=== PATIENT | male | born 1940 | race Caucasian/White ===

== ENCOUNTER 2016-10-05 07:45 | Inpatient (IN) | payer MEDICARE, OTHER ==
[~2016-10-05] VITALS: Ht 182.9 cm; Wt 77.6 kg
[2016-10-05] VITALS (21 sets, daily range): BP systolic 62–127; BP diastolic 37–59; PULSE 59–89; RESP 12–33; TEMP 97.8–102.3; O2SAT 93–100
[~2016-10-05 07:45] MED LIST: ALLO100T PO; AMLO2.5T PO; ASCO500 PO; ASPI81TA82 PO; CARB200T16 PO; CLIN150 PO; CLON0.5T PO; D 10CAP PO; DOCU1CAP39 PO; FERR324T4 PO; GLUC1000 PO; GLUC10TA3 PO; Hydrocodone/Acetaminophen PO; LACT PO; LITH300 PO; METF500 PO; OXYB5TAB33 PO; PRAV40TA PO; PROS5TAB2 PO; SLO-500T2 PO; ZIPR1CAP27 PO
[2016-10-05] MEDS ORDERED: VANCOMYCIN INJ 1,000 MG in SODIUM CHLOR 0.9% 250 ML INJ 250 ML IV ONE (08:00)
[2016-10-05] MEDS ORDERED: CEFEPIME INJ 2,000 MG in SODIUM CHLORIDE 0.9% INJ 100 ML IV ONE (08:00)
[2016-10-05] MEDS ORDERED: VANCOMYCIN HCL 1000 MG VIAL ONE (08:06)
[2016-10-05] MEDS ORDERED: NOREPINEPHRINE 4 MG/4 ML AMP ONE ×2 (08:07→10:32)
[2016-10-05 08:09] LABS: BLOOD GAS CARBOXYHEMOGLOBIN 1.8 % (0-4); BLOOD GAS HCO3 25 mmol/L (22-26); BLOOD GAS METHEMOGLOBIN 1.8 % (0-2); BLOOD GAS O2 HGB SATURATION 90 % (90-100); BLOOD GAS OXYGEN CONTENT 14.5 Vol % (12.0-20.0); BLOOD GAS PCO2 51 mmHg (38-42); BLOOD GAS PO2 69 mmHG (61-120); BLOOD GAS TOTAL HGB 11.4 G/DL (12.0-16.0); TEMP CORR TO 98.6
[2016-10-05 08:10] LABS: CRITICAL VALUE YES; DRAW SITE LT RADIAL; FIO2 100 %; NUMBER OF ARTERIAL PUNCTURES 1; OXYGEN DEVICE VENTILATOR; STAT YES; ULNAR PULSE PRESENT; VENT SETTINGS PRVC/AC
[2016-10-05 08:44] LABS: AUTOMATED NEUTROPHIL # 12.1 TH/MM3 (1.8-7.7); BASOPHIL % 0.1 % (0.0-2.0); HEMATOCRIT 35.2 % (39.0-51.0); HEMO FLAGS DIFF FINAL; LYMPH % 2.4 % (9.0-44.0); LYMPHOCYTE # 0.3 TH/MM3 (1.0-4.8); MEAN CELL VOLUME 97.8 FL (80.0-100.0); MEAN CORPUSCULAR HEMOGLOBIN 30.8 PG (27.0-34.0); MEAN CORPUSCULAR HGB CONC 31.4 % (32.0-36.0); NEUT % 92.5 % (16.0-70.0); PLATELET COUNT 444 TH/MM3 (150-450); RED CELL DISTRIBUTION WIDTH 15.4 % (11.6-17.2); WHITE BLOOD COUNT 13.1 TH/MM3 (4.0-11.0)
[2016-10-05 08:53] LABS: PROTHROMBIN TIME - PATIENT 10.9 SEC (9.8-11.6)
[2016-10-05 08:54] LABS: APTT (PATIENT) 22.2 SEC (24.3-30.1)
--- NOTE | 2016-10-05 08:55 | PD ---
HPI Chief Complaint: Respiratory Distress Time Seen by Provider: 07:54 Travel History International Travel<30 days: No Contact w/Intl Traveler<30days: No Traveled to known affect area: No History of Present Illness HPI This is a 76-year-old male who presents to the emergency department [facility] poorly responsive having vomited with a low oxygen saturation. He evidently was seen normal earlier this morning. His baseline is he is somewhat confused. Patient had a GCS of 3 with EMS. He was intubated in the field due to poor airway protection and transferred to the emergency department. He was found to be hypotensive with a systolic of 60. He was given 600 cc of normal saline. He was found to be febrile to 101. PFSH Past Medical History Anemia: Yes Arthritis: Yes Asthma: No Blood Disorders: No Bipolar Disorder: Yes Anxiety: Yes Depression: Yes Heart Rhythm Problems: No Cancer: No Cardiovascular Problems: Yes (BYPASS/PACEMAKER) High Cholesterol: Yes Chest Pain: No Congestive Heart Failure: No COPD: Yes Cerebrovascular Accident: No Diabetes: Yes Diverticulitis: Yes Endocrine: Yes Gastrointestinal Disorders: Yes (H/X OF HEMMORRHOIDS) GERD: Yes (BARRETS ESOPHAGUS) Genitourinary: Yes (CHRONIC KIDNEY DISEASE, BPH) Headaches: Yes Hiatal Hernia: No Hypertension: No Immune Disorder: No Implanted Vascular Access Dvce: No Kidney Stones: No Musculoskeletal: Yes (DJD) Neurologic: Yes Parkinson's Disease: Yes (Neuroleptic) Psychiatric: Yes (SCHIZOPHRENIA, BIPOLAR, ) Reproductive: No Respiratory: Yes (COPD) Migraines: No Renal Failure: No Schizophrenia: Yes (SCHIZO-AFFECTIVE) Seizures: No Sleep Apnea: No Thyroid Disease: No Ulcer: No ?: Not Past Surgical History Abdominal Surgery: No Cardiac Surgery: No Ear Surgery: No Endocrine Surgery: No Eye Surgery: No Genitourinary Surgery: No Gynecologic Surgery: No Neurologic Surgery: Yes (ELECTRIC SHOCK THERAPY ) Oral Surgery: No Pacemaker: Yes (2010) Thoracic Surgery: No Other Surgery: Yes Social History Alcohol Use: No Tobacco Use: No (nicotine losenges) Substance Use: No Allergies-Medications (Allergen,Severity, Reaction): Coded Allergies: Elavil (Verified Allergy, Severe, HEART IRREGULAR, 12/06/12) Haldol (Verified Allergy, Severe, HEART, 12/06/12) Mellaril (Verified Allergy, Severe, 12/06/12) Penicillin (Verified Allergy, Severe, Seizures, 12/06/12) Simvastatin (Verified Allergy, Severe, 12/06/12) Terazosin (Verified Allergy, Severe, 12/06/12) Thorazine (Verified Allergy, Severe, HEART IRREGULAR, 12/06/12) Reported Meds & Prescriptions Reported Meds & Active Scripts Active Reported Milk of Magnesia Liq (Magnesium Hydroxide) 400 Mg/5 Ml Susp 30 Ml G-TUBE DAILY PRN Trazodone (Trazodone HCl) 100 Mg Tab 100 Mg G-TUBE HS PRN Ativan (Lorazepam) 1 Mg Tab 1 Mg G-TUBE TID PRN Nepro with Carb Steady (Nutritional Supplements) 1 Liq Liq G-TUBE BID 60ML/HR X 20HRS A DAY Geodon (Ziprasidone) 80 Mg Cap 80 Mg G-TUBE BID Poly-Iron 150 (Polysaccharide Iron Complex) 150 Mg Cap 150 Mg G-TUBE BID Ditropan (Oxybutynin Chloride) 5 Mg Tab 5 Mg G-TUBE Q12HR Docusate Sodium Liq (Docusate Sodium) 50 Mg/5 Ml Liq 200 Mg G-TUBE BID Carbamazepine 100 Mg Chew 100 Mg G-TUBE BID Famotidine 20 Mg Tab 20 Mg G-TUBE DAILY Vitamin D3 (Cholecalciferol) 1,000 Unit Tab 1,000 Units G-TUBE DAILY Tamsulosin (Tamsulosin HCl) 0.4 Mg Cap 0.4 Mg G-TUBE DAILY Multi-Delyn/Iron (Pediatric Multiple Vitamins W/) 1 Liq Liq 5 Ml G-TUBE DAILY Ceiba Carbonate 300 Mg Tab 300 Mg G-TUBE DAILY Glipizide 10 Mg Tab 10 Mg G-TUBE DAILY Take 30 minutes before a meal Finasteride 5 Mg Tab 5 Mg G-TUBE DAILY Do not crush. Aspirin 81 Mg Chew 81 Mg G-TUBE DAILY Vitamin C (Ascorbic Acid) 500 Mg Tab 500 Mg G-TUBE DAILY Amlodipine (Amlodipine Besylate) 2.5 Mg Tab 2.5 Mg G-TUBE DAILY Allopurinol 100 Mg Tab 100 Mg G-TUBE DAILY Pravastatin 10 Mg Tab 10 Mg G-TUBE HS Klonopin (Clonazepam) 0.5 Mg Tab 0.5 Mg G-TUBE HS Physical Exam Narrative GENERAL: Frail elderly male SKIN: Warm and dry. HEAD: Atraumatic. Normocephalic. EYES: Pupils equal and round. No injection or drainage. ENT: Dry mucous membranes NECK: Trachea midline. CARDIOVASCULAR: Regular rate and rhythm. No murmur appreciated. RESPIRATORY: Clear to auscultation. Breath sounds equal bilaterally. GASTROINTESTINAL: Abdomen soft, non-tender, nondistended. MUSCULOSKELETAL: No obvious deformities. NEUROLOGICAL: GCS of 3, corneal reflexes intact, normal doll's eyes reflex, pupils are equal with no sign of brain stem infarct Data Data Last Documented VS Vital Signs Date Time Temp Pulse Resp B/P Pulse Ox O2 Delivery O2 Flow Rate FiO2 10/05/16 09:10 97 10/05/16 09:08 102.3 71 16 127/57 Ventilator 10/05/16 07:45 100 Orders Complete Blood Count With Diff (10/05/16 07:54) Comprehensive Metabolic Panel (10/05/16 07:54) Prothrombin Time / Inr (Pt) (10/05/16 07:54) Act Partial Throm Time (Ptt) (10/05/16 07:54) Lactic Acid Sepsis Protocol (10/05/16 07:54) Troponin I (10/05/16 07:54) Urinalysis - C+S If Indicated (10/05/16 07:54) Influenzae A/B Antigen (10/05/16 07:54) Blood Culture (10/05/16 07:54) Sputum Culture And Gram Stain (10/05/16 07:54) Chest, Single Ap (10/05/16 07:54) Arterial Blood Gas (Abg) (10/05/16 07:54) Blood Glucose (10/05/16 07:54) Ecg Monitoring (10/05/16 07:54) Iv Access Insert/Monitor (10/05/16 07:54) Oximetry (10/05/16 07:54) Oxygen Administration (10/05/16 07:54) Vancomycin Inj (Vancomycin Inj) (10/05/16 08:00) Cefepime Inj (Maxipime Inj) (10/05/16 08:00) Norepinephrine Inj (Levophed Inj) (10/05/16 08:07) Vancomycin Inj (Vancomycin Inj) (10/05/16 08:06) Ct Brain W/O Iv Contrast(Rout) (10/05/16 ) Sodium Chlor 0.9% 1000 Ml Inj (Ns 1000 M (10/05/16 09:00) Fentanyl Inj (Fentanyl Inj) (10/05/16 09:00) Acetaminophen (Tylenol) (10/05/16 09:00) Acetaminophen Supp (Tylenol Supp) (10/05/16 09:00) Midazolam Inj (Versed Inj) (10/05/16 09:15) Sodium Chlor 0.9% 1000 Ml Inj (Ns 1000 M (10/05/16 09:15) Sodium Chlor 0.9% 1000 Ml Inj (Ns 1000 M (10/05/16 09:15) Midazolam Inj (Versed Inj) (10/05/16 09:04) Fentanyl Inj (Fentanyl Inj) (10/05/16 09:05) Urine Culture (10/05/16 09:02) Admit Order (Ed Use Only) (10/05/16 09:42) Labs Laboratory Tests Test 10/05/16 10/05/16 10/05/16 10/05/16 08:00 08:11 08:25 09:02 Blood Gas Puncture Site LT RADIAL Blood Gas Patient Temperature 98.6 Blood Gas HCO3 25 mmol/L Blood Gas Base Excess -1.0 mmol/L Blood Gas Oxygen Saturation 90 % Arterial Blood pH 7.30 Arterial Blood Partial 51 mmHg Pressure CO2 Arterial Blood Partial 69 mmHG Pressure O2 Arterial Blood Oxygen Content 14.5 Vol % Arterial Blood 1.8 % Carboxyhemoglobin Arterial Blood Methemoglobin 1.8 % Blood Gas Hemoglobin 11.4 G/DL Oxygen Delivery Device VENTILATOR Blood Gas Ventilator Setting PRVC/AC Blood Gas Inspired Oxygen 100 % White Blood Count 13.1 TH/MM3 Red Blood Count 3.60 MIL/MM3 Hemoglobin 11.1 GM/DL Hematocrit 35.2 % Mean Corpuscular Volume 97.8 FL Mean Corpuscular Hemoglobin 30.8 PG Mean Corpuscular Hemoglobin 31.4 % Concent Red Cell Distribution Width 15.4 % Platelet Count 444 TH/MM3 Mean Platelet Volume 9.2 FL Neutrophils (%) (Auto) 92.5 % Lymphocytes (%) (Auto) 2.4 % Monocytes (%) (Auto) 5.0 % Eosinophils (%) (Auto) 0.0 % Basophils (%) (Auto) 0.1 % Neutrophils # (Auto) 12.1 TH/MM3 Lymphocytes # (Auto) 0.3 TH/MM3 Monocytes # (Auto) 0.7 TH/MM3 Eosinophils # (Auto) 0.0 TH/MM3 Basophils # (Auto) 0.0 TH/MM3 CBC Comment DIFF FINAL Differential Comment Prothrombin Time 10.9 SEC Prothromb Time International 1.0 RATIO Ratio Activated Partial 22.2 SEC Thromboplast Time Sodium Level 149 MEQ/L Potassium Level 5.5 MEQ/L Chloride Level 112 MEQ/L Carbon Dioxide Level 25.4 MEQ/L Anion Gap 12 MEQ/L Blood Urea Nitrogen 55 MG/DL Creatinine 2.46 MG/DL Estimat Glomerular Filtration 26 ML/MIN Rate Random Glucose 227 MG/DL Calcium Level 10.0 MG/DL Total Bilirubin 0.3 MG/DL Aspartate Amino Transf 32 U/L (AST/SGOT) Alanine Aminotransferase 18 U/L (ALT/SGPT) Alkaline Phosphatase 84 U/L Troponin I 0.03 NG/ML Total Protein 8.0 GM/DL Albumin 2.1 GM/DL Lactic Acid Level 4.3 mmol/L Urine Color YELLOW Urine Turbidity HAZY Urine pH 5.5 Urine Specific [place] 1.013 Urine Protein 30 mg/dL Urine Glucose (UA) NEG mg/dL Urine Ketones NEG mg/dL Urine Occult Blood NEG Urine Nitrite NEG Urine Bilirubin NEG Urine Urobilinogen LESS THAN 2.0 MG/DL Urine Leukocyte Esterase SMALL Urine RBC 1 /hpf Urine WBC 2 /hpf Urine Squamous Epithelial 1 /hpf Cells Urine Transitional Epithelial <1 /hpf Cells Urine Amorphous Sediment MOD Urine Bacteria OCC /hpf Urine Mucus FEW /lpf Microscopic Urinalysis Comment CATH-CULTURE IND MDM Medical Decision Making Medical Screen Exam Complete: Yes Emergency Medical Condition: Yes Interpretation(s) Fever, hypotension Leukocytosis with left shift Anemia Hypernatremia, mild hyperkalemia Renal insufficiency with an elevated BUN Lactic acid is 4.3 Last [address] 10/05/16 0000 Signed Impressions: Service Date/Time: Wednesday, October 05, 2016 09:24 - CONCLUSION: Negative for an acute process.. Eric Mcclellan MD FACR Differential Diagnosis Pneumonia, urinary tract infection, sepsis, intracranial hemorrhage, myocardial infarction Narrative Course This is a 76-year-old male who presents to the emergency department with hypoxic respiratory failure and altered mental status. Patient had been intubated in the field by EMS. On arrival an IV was established and he was placed on a monitor. On arrival he had a systolic blood pressure in the 60s despite 2 L of IV fluid he did not have improvement. A right internal jugular central line was placed and the patient was started on Levophed. He was given broad-spectrum antibiotics and continued IV hydration. I suspect his source is pneumonia as his chest x-ray appears to have early infiltrate on the right side , possibly consistent with aspiration. His initial lactic acid was over 4 but on repeat it was 1.7. Patient will be admitted to the intensive care unit for further monitoring. Critical Care Narrative Aggregate critical care time was 70 minutes. Time to perform other separately billable procedures was not included in the critical care time. My time did not include minutes spent treating any other patients simultaneously or on activities that did not directly contribute to the patient's treatment. The services I provided to this patient were to treat and/or prevent clinically significant deterioration that could result in: disability, I provided critical care services requiring my management, as noted below: Chart data review, documentation time, medication orders and management, vital sign assessments/reviewing monitor data, ordering and reviewing lab tests, ordering and interpreting/reviewing x-rays and diagnostic studies, care of the patient and discussion of the patient with the admitting physicians. Procedures Procedure Narrative CENTRAL VENOUS LINE: The site was prepped with Chloraprep and sterilely draped. It was infiltrated with 1% lidocaine plain. The deep vein was cannulated using normal Seldinger technique. A triple lumen central line was placed in the right internal jugular site and secured. The site was sterilely dressed. The patient tolerated the procedure well. Diagnosis Primary Impression: Septic shock Admitting Information Admitting Physician Requests: Admit Radha Claros MD Oct 05, 2016 08:54
[2016-10-05] MEDS ORDERED: SODIUM CHLOR 0.9% 1000 ML INJ 1,000 ML IV SCH ×3 (09:00→09:15)
[2016-10-05] MEDS ORDERED: ACETAMINOPHEN 500 MG CPLT PO ONE (09:00)
[2016-10-05] MEDS ORDERED: ACETAMINOPHEN 650 MG SUPP RECTAL ONE (09:00)
[2016-10-05] MEDS ORDERED: MIDAZOLAM HCL 5 MG/ML VIAL (1 ML) ONE (09:04)
[2016-10-05] MEDS ORDERED: MIDAZOLAM HCL 2 MG/2 ML VIAL IV PUSH ONE (09:15)
[2016-10-05 09:16] LABS: ALKALINE PHOSPHATASE 84 U/L (45-117); ALT (GPT) 18 U/L (12-78); ANION GAP 12 MEQ/L (5-15); AST (GOT) 32 U/L (15-37); BICARBONATE 25.4 MEQ/L (21.0-32.0); BLOOD UREA NITROGEN 55 MG/DL (7-18); CHLORIDE 112 MEQ/L (98-107); GLOMERULAR FILTRATION RATE 26 ML/MIN (>89); SODIUM (NA) 149 MEQ/L (136-145); TOTAL BILIRUBIN ADULT 0.3 MG/DL (0.2-1.0)
[2016-10-05 09:17] LABS: POTASSIUM 5.5 MEQ/L (3.5-5.1)
--- NOTE | 2016-10-05 09:22 | RADRPT ---
EXAM DATE/TIME: 10/05/2016 08:41 [facility] COMPARISON: CHEST SINGLE AP, December 06, 2012, 12:17. INDICATIONS : Post intubation and central line placement MEDICAL HISTORY : Unobtainable SURGICAL HISTORY : Unobtainable ENCOUNTER: Initial ACUITY: 1 day PAIN SCORE: Non-responsive. LOCATION: Bilateral chest FINDINGS: Support apparatus is in good position. Pacemaker is implanted in the left chest. The lungs are sharon r. Heart and pulmonary vascularity are normal. CONCLUSION: ET tube in good position. Eric Mcclellan MD FACR on October 05, 2016 at 9:18 Board Certified Radiologist. This report was verified electronically.
[2016-10-05 09:31] LABS: BACTERIA, URINE OCC /hpf; BLOOD, URINE NEG (NEG); COMMENT (UR) CATH-CULTURE IND; CULTURE IF INDICATED CATH CULTURE IND; GLUCOSE,URINE NEG (NEG); KETONE, URINE NEG (NEG); MUCUS URINE FEW /lpf (OCC); NITRITE,URINE NEG (NEG); PH, URINE 5.5 (5.0-8.5); SQUAMOUS EPITHELIAL CELL URINE 1 /hpf (0-5); TRANSITIONAL EPI CELLS, URINE <1 /hpf; URINE COLOR YELLOW (YELLW/STRAW)
--- NOTE | 2016-10-05 09:37 | RADRPT ---
EXAM DATE/TIME: 10/05/2016 09:24 [facility] COMPARISON: CT BRAIN W/O CONTRAST, December 06, 2012, 13:19. INDICATIONS : Altered mental status. Possible aspiration. RADIATION DOSE: 46.76 CTDIvol (mGy) MEDICAL HISTORY : Chronic obstructive pulmonary disease. SURGICAL HISTORY : Pacemaker. ENCOUNTER: Initial ACUITY: 1 day PAIN SCALE: Non-responsive LOCATION: cranial TECHNIQUE: Multiple contiguous axial images were obtained of the head. Using automated exposure control and adj ustment of the mA and/or kV according to patient size, radiation dose was kept as low as reasonably a chievable to obtain optimal diagnostic quality images. FINDINGS: CEREBRUM: The ventricles are normal for age. No evidence of midline shift, mass lesion, hemorrhage or acute in farction. No extra-axial fluid collections are seen. POSTERIOR FOSSA: The cerebellum and brainstem are intact. The 4th ventricle is midline. The cerebellopontine angle i s unremarkable. EXTRACRANIAL: The visualized portion of the orbits is intact. SKULL: The calvaria is intact. No evidence of skull fracture. CONCLUSION: Negative for an acute process.. Eric Mcclellan MD FACR on October 05, 2016 at 9:35 Board Certified Radiologist. This report was verified electronically.
[2016-10-05 10:28] LABS: LACTIC ACID GHOST NOT REPORTABLE
[2016-10-05] MEDS ORDERED: FAMO20TA2 G-TUBE (10:29)
[2016-10-05] MEDS ORDERED: AMLO2.5T G-TUBE (10:29)
[2016-10-05] MEDS ORDERED: NU-IRON G-TUBE (10:29)
[2016-10-05] MEDS ORDERED: CARB100C G-TUBE (10:29)
[2016-10-05] MEDS ORDERED: TRAZ100T4 G-TUBE (10:29)
[2016-10-05] MEDS ORDERED: GEOD80CA G-TUBE (10:29)
[2016-10-05] MEDS ORDERED: DOCU100S G-TUBE (10:29)
[2016-10-05] MEDS ORDERED: GLIP10TA6 G-TUBE (10:29)
[2016-10-05] MEDS ORDERED: ALLO100T G-TUBE (10:29)
[2016-10-05] MEDS ORDERED: TAMS0.4C4 G-TUBE (10:29)
[2016-10-05] MEDS ORDERED: VITA100018 G-TUBE (10:29)
[2016-10-05] MEDS ORDERED: NEPRLIQ3 G-TUBE (10:29)
[2016-10-05] MEDS ORDERED: CLON.5 G-TUBE (10:29)
[2016-10-05] MEDS ORDERED: LORA-474 G-TUBE (10:29)
[2016-10-05] MEDS ORDERED: MILKSUS G-TUBE (10:29)
[2016-10-05] MEDS ORDERED: FINA5TAB2 G-TUBE (10:29)
[2016-10-05] MEDS ORDERED: LITH300T3 G-TUBE (10:29)
[2016-10-05] MEDS ORDERED: OXYB5TAB10 G-TUBE (10:29)
[2016-10-05] MEDS ORDERED: PRAV10TA G-TUBE (10:29)
[2016-10-05] MEDS ORDERED: MULTLIQ5 G-TUBE (10:29)
[2016-10-05] MEDS ORDERED: ASPI81CH G-TUBE (10:29)
[2016-10-05] MEDS ORDERED: VITA500T G-TUBE (10:29)
[2016-10-05] MEDS ORDERED: TERBUTALINE INJ 1 MG/ML AMP SQ PRN (10:30)
[2016-10-05] MEDS ORDERED: SODIUM CHLORIDE 0.9% FLUSH 5 ML FLUSH IVF PRN (10:30)
[2016-10-05] MEDS: NOREPINEPHRINE-DEXTROSE DRIP 250 ML IV SCH ×4 (11:04→21:14)
[2016-10-05] MEDS ORDERED: fentaNYL DRIP 250 ML IV SCH (12:15)
[2016-10-05] MEDS ORDERED: fentaNYL DRIP 250 ML ONE (12:20)
--- NOTE | 2016-10-05 14:34 | EKG ---
Date Performed: 10/05/2016 Time Performed: 08:39:36 PTAGE: 76 years EKG: Sinus rhythm WITH OCCASIONAL SUPRAVENTRICULAR PREMATURE COMPLEXES INAPPROPRIATE SENSING BY PACEMAKER LOW QRS VOLT AGE IN PRECORDIAL LEADS PROLONGED QT INTERVAL Nonspecific ST and T wave abnormalities ABNORMAL ECG IN TERPRETATION BASED ON A DEFAULT AGE OF 40 YEARS PREVIOUS TRACING : 12/06/2012 12.52 Compared to the previous tracing, previously sinus rh ythm, now sinus rhythm with inappropriate sensing by pacemaker and nonspecific ST/T wave changes DOCTOR: Howie Ji Interpretating Date/Time 10/05/2016 14:33:09
[2016-10-05] MEDS ORDERED: RESP: ALBUTEROL 2.5 MG/IPRATROPIUM 0.5 MG NEB (PRN) INH (15:45)
[2016-10-05] MEDS ORDERED: ONDANSETRON HCL 4 MG/2 ML VIAL IV PRN (15:45)
[2016-10-05] MEDS ORDERED: Vancomycin Consult Pharmacy 1 EA OTHER SCH (15:45)
[2016-10-05] MEDS ORDERED: PROPOFOL 1000 MG/100 ML INJ 100 ML IV SCH (15:45)
[2016-10-05] MEDS ORDERED: CHLORHEXIDINE GLUCONATE 2 % 1 PACK (2 CLOTHS) TOP PRN (15:45)
[2016-10-05] MEDS ORDERED: MISCELLANEOUS NURSING INFORMATION XX SCH (15:45)
[2016-10-05] MEDS ORDERED: SODIUM CHLORIDE 0.9% FLUSH 5 ML FLUSH IV FLUSH PRN (15:45)
[2016-10-05] MEDS ORDERED: DEXTROSE 50% IN WATER 50 ML VIAL(D50) IV PUSH PRN (15:45)
[2016-10-05 17:08] LABS: BICARBONATE 20.5 MEQ/L (21.0-32.0); POTASSIUM 5.3 MEQ/L (3.5-5.1)
[2016-10-05] MEDS: INSULIN NovoLIN REGULAR SUPPLEMENTAL SCALE SQ SCH (17:58)
[2016-10-05] MEDS: RESP: ALBUTEROL 2.5 MG/IPRATROPIUM 0.5 MG NEB (SCH) INH (19:17)
[2016-10-05] MEDS ORDERED: CHLORHEXIDINE GLUCONATE 2 % 1 PACK (2 CLOTHS)(extra cloths) TOP PRN (19:30)
[2016-10-05] MEDS: SODIUM CHLOR 0.9% 1000 ML INJ 1,000 ML IV SCH (20:30)
[2016-10-05] MEDS: HEPARIN SODIUM - SQ 10,000 UNITS/ML VIAL SQ SCH (21:14)
[2016-10-05] MEDS: PRAVASTATIN SOD 10 MG TAB G-TUBE SCH (21:15)
[2016-10-05] MEDS: SODIUM CHLORIDE 0.9% FLUSH 5 ML FLUSH IV FLUSH SCH (21:15)
[2016-10-05] MEDS: DOCUSATE SODIUM 50 MG/SENNA 8.6 MG TAB PO SCH (21:15)
[2016-10-05] MEDS: CHLORHEXIDINE 0.12% (ORAL KIT) 15 ML CUP MT SCH (21:16)
--- NOTE | 2016-10-05 22:55 | HHI.HP ---
[facility] Service Critical Care Medicine Primary Care Physician Orlando Garcia, DO Admission Diagnosis septic shock Diagnosis: Chief Complaint: altered mental status Travel History International Travel<30 Days: No Contact w/Intl Traveler <30 Da: No Traveled to Known Affected Are: No History of Present Illness This is a 76-year-old male who [facility] after he had an acute mental status change and was noticed to have vomited around his tracheostomy site and hypoxia. Per report, he was seen normal earlier in the morning. He is apparently somewhat confused at baseline. He has a long psychiatric history. For EMS, the patient had a GCS of 3. He was intubated in the field. In the emergency room he was hypotensive with systolics in the 60s. He was given IV fluid boluses. He was febrile to 101. He was started on empiric antibiotics. Central line was placed. He was started on norepinephrine. Critical care medicine is consult to evaluate and manage septic shock. Review of Systems ROS Limitations: Clinical Condition, Intubated, Altered Mental Status Past Family Social History Allergies: Coded Allergies: Elavil (Verified Allergy, Severe, HEART IRREGULAR, 12/06/12) Haldol (Verified Allergy, Severe, HEART, 12/06/12) Mellaril (Verified Allergy, Severe, 12/06/12) Penicillin (Verified Allergy, Severe, Seizures, 12/06/12) Simvastatin (Verified Allergy, Severe, 12/06/12) Terazosin (Verified Allergy, Severe, 12/06/12) Thorazine (Verified Allergy, Severe, HEART IRREGULAR, 12/06/12) Past Medical History Anemia Arthritis Bipolar disorder Anxiety Depression Pacemaker Hyperlipidemia Diabetes Diverticulitis Hemorrhoids Barrios's esophagus Chronic kidney disease BPH COPD Headaches Degenerative disc disease Parkinson's disease Schizophrenia Bipolar Schizoaffective disorder Past Surgical History ECT Pacemaker in 2010 Reported Medications Milk of Magnesia Liq (Magnesium Hydroxide) 400 Mg/5 Ml Susp 30 Ml G-TUBE DAILY PRN Trazodone (Trazodone HCl) 100 Mg Tab 100 Mg G-TUBE HS PRN Ativan (Lorazepam) 1 Mg Tab 1 Mg G-TUBE TID PRN Nepro with Carb Steady (Nutritional Supplements) 1 Liq Liq G-TUBE BID 60ML/HR X 20HRS A DAY Geodon (Ziprasidone) 80 Mg Cap 80 Mg G-TUBE BID Poly-Iron 150 (Polysaccharide Iron Complex) 150 Mg Cap 150 Mg G-TUBE BID Ditropan (Oxybutynin Chloride) 5 Mg Tab 5 Mg G-TUBE Q12HR Docusate Sodium Liq (Docusate Sodium) 50 Mg/5 Ml Liq 200 Mg G-TUBE BID Carbamazepine 100 Mg Chew 100 Mg G-TUBE BID Famotidine 20 Mg Tab 20 Mg G-TUBE DAILY Vitamin D3 (Cholecalciferol) 1,000 Unit Tab 1,000 Units G-TUBE DAILY Tamsulosin (Tamsulosin HCl) 0.4 Mg Cap 0.4 Mg G-TUBE DAILY Multi-Delyn/Iron (Pediatric Multiple Vitamins W/) 1 Liq Liq 5 Ml G-TUBE DAILY Haskell Carbonate 300 Mg Tab 300 Mg G-TUBE DAILY Glipizide 10 Mg Tab 10 Mg G-TUBE DAILY Take 30 minutes before a meal Finasteride 5 Mg Tab 5 Mg G-TUBE DAILY Do not crush. Aspirin 81 Mg Chew 81 Mg G-TUBE DAILY Vitamin C (Ascorbic Acid) 500 Mg Tab 500 Mg G-TUBE DAILY Amlodipine (Amlodipine Besylate) 2.5 Mg Tab 2.5 Mg G-TUBE DAILY Allopurinol 100 Mg Tab 100 Mg G-TUBE DAILY Pravastatin 10 Mg Tab 10 Mg G-TUBE HS Klonopin (Clonazepam) 0.5 Mg Tab 0.5 Mg G-TUBE HS Active Ordered Medications See MAR Family History reviewed and found to be noncontributory to his acute illness Social History per chart review: denied etoh, tobacco (nicotine losenges), DOA. Physical Exam Vital Signs Vital Signs Date Time Temp Pulse Resp B/P Pulse Ox O2 Delivery O2 Flow Rate FiO2 10/05/16 20:00 59 102/59 10/05/16 19:18 96 40 10/05/16 18:00 59 10/05/16 17:13 95 40 10/05/16 16:00 97.8 59 17 101/58 98 10/05/16 16:00 59 10/05/16 16:00 59 101/58 10/05/16 14:00 59 10/05/16 13:29 60 10/05/16 12:45 97 10/05/16 12:22 60 18 109/57 98 Ventilator 10/05/16 11:56 61 16 100/55 100 Ventilator 10/05/16 11:10 100 100 10/05/16 11:06 61 18 91/53 99 Room Air 10/05/16 10:09 68 18 104/52 100 Ventilator 10/05/16 09:57 66 16 99/58 100 Ventilator 10/05/16 09:44 102.3 73 16 92/51 100 Ventilator 10/05/16 09:10 97 10/05/16 09:08 102.3 71 16 127/57 97 Ventilator 10/05/16 08:26 97 Ventilator 10/05/16 08:26 80 12 98 10/05/16 08:22 72 12 69/37 100 10/05/16 08:15 102.3 68 16 62/41 98 Ventilator 10/05/16 07:45 95 100 Physical Exam GENERAL: Elderly male, lying in bed, intubated, sedated and critically ill. HEENT: Normocephalic. Atraumatic. Pupils equally round and reactive. NECK: Trachea is midline. There is no JVD. CHEST: Equal chest rise. Coarse breath sounds bilaterally. Intubated. CARDIOVASCULAR: Bradycardic rate, regular rhythm. There are pacer spikes which do not correlate with QRS. ABDOMEN: Soft, nontender, nondistended. No guarding. There is a PEG tube exit subxiphoid. The site is clean and dry. MUSCULOSKELETAL: Moves all extremities. Distal pulses 2+. No peripheral edema. NEUROLOGICAL: RASS -4. moves all extremities, non-purposeful. nonfocal. Laboratory Laboratory Tests Test 10/05/16 10/05/16 10/05/16 10/05/16 08:00 08:11 08:25 09:02 Blood Gas Puncture Site LT RADIAL Blood Gas Patient Temperature 98.6 Blood Gas HCO3 25 Blood Gas Base Excess -1.0 Blood Gas Oxygen Saturation 90 Arterial Blood pH 7.30 Arterial Blood Partial 51 Pressure CO2 Arterial Blood Partial 69 Pressure O2 Arterial Blood Oxygen Content 14.5 Arterial Blood 1.8 Carboxyhemoglobin Arterial Blood Methemoglobin 1.8 Blood Gas Hemoglobin 11.4 Oxygen Delivery Device VENTILATOR Blood Gas Ventilator Setting PRVC/AC Blood Gas Inspired Oxygen 100 White Blood Count 13.1 Red Blood Count 3.60 Hemoglobin 11.1 Hematocrit 35.2 Mean Corpuscular Volume 97.8 Mean Corpuscular Hemoglobin 30.8 Mean Corpuscular Hemoglobin 31.4 Concent Red Cell Distribution Width 15.4 Platelet Count 444 Mean Platelet Volume 9.2 Neutrophils (%) (Auto) 92.5 Lymphocytes (%) (Auto) 2.4 Monocytes (%) (Auto) 5.0 Eosinophils (%) (Auto) 0.0 Basophils (%) (Auto) 0.1 Neutrophils # (Auto) 12.1 Lymphocytes # (Auto) 0.3 Monocytes # (Auto) 0.7 Eosinophils # (Auto) 0.0 Basophils # (Auto) 0.0 CBC Comment DIFF FINAL Differential Comment Prothrombin Time 10.9 Prothromb Time International 1.0 Ratio Activated Partial 22.2 Thromboplast Time Sodium Level 149 Potassium Level 5.5 Chloride Level 112 Carbon Dioxide Level 25.4 Anion Gap 12 Blood Urea Nitrogen 55 Creatinine 2.46 Estimat Glomerular Filtration 26 Rate Random Glucose 227 Calcium Level 10.0 Total Bilirubin 0.3 Aspartate Amino Transf 32 (AST/SGOT) Alanine Aminotransferase 18 (ALT/SGPT) Alkaline Phosphatase 84 Troponin I 0.03 Total Protein 8.0 Albumin 2.1 Lactic Acid Level 4.3 Urine Color YELLOW Urine Turbidity HAZY Urine pH 5.5 Urine Specific Dorsey 1.013 Urine Protein 30 Urine Glucose (UA) NEG Urine Ketones NEG Urine Occult Blood NEG Urine Nitrite NEG Urine Bilirubin NEG Urine Urobilinogen LESS THAN 2.0 Urine Leukocyte Esterase SMALL Urine RBC 1 Urine WBC 2 Urine Squamous Epithelial 1 Cells Urine Transitional Epithelial <1 Cells Urine Amorphous Sediment MOD Urine Bacteria OCC Urine Mucus FEW Microscopic Urinalysis Comment CATH-CULTURE IND Test 10/05/16 10/05/16 10/05/16 10:49 14:30 16:24 Lactic Acid Level 1.7 Nasal Screen MRSA (PCR) POSITIVE Sodium Level 147 Potassium Level 5.3 Chloride Level 118 Carbon Dioxide Level 20.5 Anion Gap 9 Blood Urea Nitrogen 56 Creatinine 2.17 Estimat Glomerular Filtration 30 Rate Random Glucose 355 Calcium Level 8.9 Date/Time Procedure Status Source Growth 10/05/16 09:02 Urine Culture Received Urine Clean Catch Pending 10/05/16 09:02 Gram Stain - Final Resulted Sputum Expectorated Sputum 10/05/16 09:02 Sputum Culture Resulted Sputum Expectorated Sputum Pending 10/05/16 08:16 Aerobic Blood Culture Received Blood Peripheral Pending 10/05/16 08:16 Anaerobic Blood Culture Received Blood Peripheral Pending Result Diagram: 10/05/16 0811 10/05/16 1624 Assessment and Plan Assessment and Plan Assessment: This is a 76-year-old male with long psychiatric history, chronically critically ill with PEG tube placement who presents with what appears to be an aspiration-like event, septic shock, possible aspiration pneumonia. During his mental status is likely accommodation of his baseline psychiatric illness along with his septic shock. He is very critically ill. I' m very concerned given his age and multiple comorbidities, that he may not do well long-term. We will consult palliative care and have them assist with goals of care discussion. His prognosis is guarded. Plan by systems: Neurologic: Bipolar disorder Schizophrenia Metabolic encephalopathy Goal RASS 0 Propofol, fentanyl for goal RASS Daily sedation vacation Will likely need his antipsychotics restarted as he improves. For now we will hold him. Respiratory: Acute hypoxic respiratory failure Probable aspiration pneumonia Head of bed at 30 Vent bundle Wean FiO2 for goal SPO2 greater than 90% Low tidal volume ventilation targeting 6 cc/kg ideal body weight Is not be SBT criteria today given hemodynamic instability Cardiovascular: Septic shock Pacemaker Patient clinically appears hypovolemic at this time and oliguric. We will give the patient 1 L LR bolus Maintenance fluids normal saline 200 cc an hour We will get the pacer interrogated given the apparent misfiring of the pacemaker by telemetry. Continue norepinephrine for goal map greater than 65 Trend CVP. Currently 0. Renal: Acute kidney injury Likely prerenal from septic shock Every hour urine outputs [place] -- Strict I/Os FEN/GI: Acute protein calorie malnutritionsevere Chronic dysphagia Nothing by mouth G-tube to gravity Fluids as above Heme/ID: Possible aspiration pneumonia Septic shock Vancomycin with pharmacy dosing Cefepime 1 g every 24 hours, renal dose Flagyl 500 mg IV every 8 Follow-up sputum, blood, urine cultures Endocrine: Hyperglycemia of critical illness -- SSI to every 6 hours, medium scale Prophylaxis: GI Prophylaxis Protonix 40 mg IV every 12 hours DVT Prophylaxis -- SCDs Subcutaneous heparin Lines: 10/05 right IJ triple lumen catheter [place] Dispo: Admitted to the ICU. He remains critical. This patient remains critically ill with one or more organ systems which are or may become a threat to life. I have spent in excess of 36 minutes discontinuously in the care and management of this patient. This time is exclusive of procedures, and includes, but is not limited to, evaluation of the patient, review of the medical record, discussions with family, consultants, nursing staff, or respiratory therapy, and documentation in the medical record. Ulises Serra MD Oct 05, 2016 22:55
[2016-10-06] VITALS (19 sets, daily range): BP systolic 84–126; BP diastolic 45–62; PULSE 59–135; RESP 15–37; TEMP 98.8–100.7; O2SAT 92–95
[2016-10-06] MEDS: SODIUM CHLOR 0.9% 1000 ML INJ 1,000 ML IV SCH ×5 (00:20→20:09)
[2016-10-06] MEDS: INSULIN NovoLIN REGULAR SUPPLEMENTAL SCALE SQ SCH ×4 (00:45→17:39)
[2016-10-06] MEDS: NOREPINEPHRINE-DEXTROSE DRIP 250 ML IV SCH ×6 (00:45→20:08)
[2016-10-06] MEDS: metroNIDAZOLE 500 MG INJ 100 ML IV SCH ×4 (00:45→22:57)
[2016-10-06] MEDS: RESP: ALBUTEROL 2.5 MG/IPRATROPIUM 0.5 MG NEB (SCH) INH ×4 (03:08→22:00)
[2016-10-06] MEDS: CHLORHEXIDINE GLUCONATE 2 % 1 PACK (2 CLOTHS) TOP SCH (04:00)
[2016-10-06] MEDS: VANCOMYCIN INJ 1,200 MG in SODIUM CHLOR 0.9% 250 ML INJ 250 ML IV SCH (04:00)
[2016-10-06] MEDS: CHLORHEXIDINE GLUCONATE 2 % 1 PACK (2 CLOTHS)(taper/protocol) TOP SCH (04:00)
[2016-10-06] MEDS: HEPARIN SODIUM - SQ 10,000 UNITS/ML VIAL SQ SCH ×3 (04:03→22:56)
[2016-10-06] MEDS: fentaNYL DRIP 250 ML IV SCH (04:03)
--- NOTE | 2016-10-06 04:35 | RADRPT ---
EXAM DATE/TIME: 10/06/2016 03:08 [facility] COMPARISON: CHEST SINGLE AP, October 05, 2016, 8:41. INDICATIONS : Shortness of breath, possible pulmonary disease. MEDICAL HISTORY : None. SURGICAL HISTORY : None. ENCOUNTER: Subsequent ACUITY: 2 days PAIN SCORE: Non-responsive. LOCATION: Bilateral chest FINDINGS: A single view of the chest demonstrates unchanged position of endotracheal tube and right jugular lidia tral line. Left-sided pacemaker is also stable in position. There is bilateral scattered airspace dis ease greatest in rocío-hilar distribution. Heart normal in size. The cardiomediastinal contours are u nremarkable. Osseous structures are intact. CONCLUSION: Diffuse bilateral airspace disease. Ananth Dozier MD on October 06, 2016 at 4:32 Board Certified Radiologist. This report was verified electronically.
[2016-10-06 04:45] LABS: HEMATOCRIT 31.2 % (39.0-51.0); MEAN CELL VOLUME 99.1 FL (80.0-100.0); MEAN CORPUSCULAR HEMOGLOBIN 30.5 PG (27.0-34.0); MEAN CORPUSCULAR HGB CONC 30.8 % (32.0-36.0); PLATELET COUNT 329 TH/MM3 (150-450); RED BLOOD COUNT 3.15 MIL/MM3 (4.50-5.90); RED CELL DISTRIBUTION WIDTH 15.8 % (11.6-17.2); REVIEW FLAG FINAL
[2016-10-06 05:31] LABS: BICARBONATE 24.7 MEQ/L (21.0-32.0); POTASSIUM 4.4 MEQ/L (3.5-5.1)
[2016-10-06] MEDS: CHLORHEXIDINE 0.12% (ORAL KIT) 15 ML CUP MT SCH ×2 (08:24→20:09)
[2016-10-06] MEDS: DOCUSATE SODIUM 50 MG/SENNA 8.6 MG TAB PO SCH ×2 (08:25→20:09)
[2016-10-06] MEDS: CEFEPIME INJ 1,000 MG in SODIUM CHLORIDE 0.9% INJ 100 ML IV SCH (08:25)
[2016-10-06] MEDS: SODIUM CHLORIDE 0.9% FLUSH 5 ML FLUSH IV FLUSH SCH ×2 (08:25→20:09)
[2016-10-06] MEDS: PANTOPRAZOLE SODIUM 40 MG VIAL IV SCH (08:25)
[2016-10-06] MEDS: VASOPRESSIN INJ 40 UNITS in DEXTROSE 5% IN WATER 100ML INJ 98 ML IV SCH ×2 (08:32)
--- NOTE | 2016-10-06 14:21 | PD.CONS ---
Consult Service Palliative Care Consult Requested By Dr. Serra . Primary Care Physician Orlando Garcia DO . Reason for Consultation a. To assist with evaluation and management of symptoms including: b. To assist medical decision maker(s) with: better understanding of current medical conditions; weighing benefits/burdens of medical treatment options; making medical treatment decisions. HPI History of Present Illness This 76-year-old male, with a past history of schizophrenia, bipolar disorder, chronic kidney disease, chronic anemia, diabetes, diabetic foot, pneumonia hospitalization 2012, and recent UTI hospitalization August 2016, was sent from his skilled nursing to the emergency department on the morning of 10/05/15 because of dyspnea, altered mental status, hypoxia, and lethargy. The paramedics found him to be a GCS of 3 and intubated him. He was noted to have a blood pressure of 60 systolic and a temperature of 101 at the skilled nursing. According to skilled nursing staff, the patient has been declining over the past few months. He has been confined to a wheelchair and bed for several months, but was able to transfer independently to the wheelchair until the past 2 or 3 months. He has been too weak to transfer on his own in this past couple months. The skilled nursing staff reports that the patient could answer yes and no questions, and usually was able to indicate what he wanted or needed. He did not converse in responsive/full sentences. During his recent hospitalization at [facility] for UTI/sepsis, the patient had a PEG tube placed during that hospitalization, apparently because of dysphagia. He has been on artificial nutrition via his PEG tube while he has been at the skilled nursing since then. I suspect he has aspirated.. In the emergency department, findings included: * Unresponsive * Temp 102, systolic blood pressure 60 * White count 13.1, hemoglobin 11.1 * Sodium 142, creatinine 2.46, GFR 26, albumin 2.1 * CT brain scan with no acute disease * Chest x-ray with clear lungs Resuscitation was begun with IV fluids, cultures were obtained, antibiotics were started, and the patient was admitted to the [facility]. Follow-up chest x-ray revealed bilateral airspace disease. The blood cultures are negative 1 day. More fluid was provided, and he has been on pressor drugs since admission. His MAP remains low, in the 50s at the time of this consultation. The patient is on low dose fentanyl, but on nothing else sedating. When he is stimulated, his reaction is to raise his arms that both shake, and he grimaces. He does not seem to track anyone in the room, does not answer questions or follow commands. Palliative care was consulted to assist with symptom management, and to enter into discussions with the patient's stepdaughter/HCS regarding the prognosis and the benefits and burdens of the various treatment options for the patient. . Function/Cognitive Trajectory The patient has reportedly been a skilled nursing patient for quite some time. As reported by the skilled nursing staff, the patient lost his ability to transfer independently into his wheelchair a couple months ago, and is weaker and requiring more help now. He developed swallowing difficulty during his hospitalization last month in [place], and a PEG tube was placed. His skilled nursing staff reports that he would answer yes and no questions, and could make his needs known most of the time. . Review of Systems ROS Limitations: Clinical Condition, Intubated (patient unable to participate in ROS, no other family available at this time.) Past Family Social History Coded Allergies: Elavil (Verified Allergy, Severe, HEART IRREGULAR, 12/06/12) Haldol (Verified Allergy, Severe, HEART, 12/06/12) Mellaril (Verified Allergy, Severe, 12/06/12) Penicillin (Verified Allergy, Severe, Seizures, 12/06/12) Simvastatin (Verified Allergy, Severe, 12/06/12) Terazosin (Verified Allergy, Severe, 12/06/12) Thorazine (Verified Allergy, Severe, HEART IRREGULAR, 12/06/12) *MDRO Multi-Drug Resistant Organism (Verified Adverse Reaction, Unknown, MRSA, 10/06/16) MRSA screen POSITIVE - 10/05/16 Past Medical History * Sepsis, septic shock * Pneumonia, probable aspiration * Respiratory failure * Metabolic encephalopathy * Recent hospitalization for UTI/sepsis * Long history of psychiatric illness (schizophrenia, bipolar disorder) * History of pneumonia 2012 * Chronic anemia * Chronic kidney disease * Anxiety * Depression * Hyperlipidemia * COPD * Diabetes, with history of recent diabetic foot, Charcot joint/neuropathic osteoarthropathy * Diverticulosis * Barrios's esophagus * BPH . Past Surgical History * Pacemaker * PEG tube 2 weeks ago . Reported Medications Milk of Magnesia Liq (Magnesium Hydroxide) 400 Mg/5 Ml Susp 30 Ml G-TUBE DAILY PRN Trazodone (Trazodone HCl) 100 Mg Tab 100 Mg G-TUBE HS PRN Ativan (Lorazepam) 1 Mg Tab 1 Mg G-TUBE TID PRN Nepro with Carb Steady (Nutritional Supplements) 1 Liq Liq G-TUBE BID 60ML/HR X 20HRS A DAY Geodon (Ziprasidone) 80 Mg Cap 80 Mg G-TUBE BID Poly-Iron 150 (Polysaccharide Iron Complex) 150 Mg Cap 150 Mg G-TUBE BID Ditropan (Oxybutynin Chloride) 5 Mg Tab 5 Mg G-TUBE Q12HR Docusate Sodium Liq (Docusate Sodium) 50 Mg/5 Ml Liq 200 Mg G-TUBE BID Carbamazepine 100 Mg Chew 100 Mg G-TUBE BID Famotidine 20 Mg Tab 20 Mg G-TUBE DAILY Vitamin D3 (Cholecalciferol) 1,000 Unit Tab 1,000 Units G-TUBE DAILY Tamsulosin (Tamsulosin HCl) 0.4 Mg Cap 0.4 Mg G-TUBE DAILY Multi-Delyn/Iron (Pediatric Multiple Vitamins W/) 1 Liq Liq 5 Ml G-TUBE DAILY [place] Carbonate 300 Mg Tab 300 Mg G-TUBE DAILY Glipizide 10 Mg Tab 10 Mg G-TUBE DAILY Take 30 minutes before a meal Finasteride 5 Mg Tab 5 Mg G-TUBE DAILY Do not crush. Aspirin 81 Mg Chew 81 Mg G-TUBE DAILY Vitamin C (Ascorbic Acid) 500 Mg Tab 500 Mg G-TUBE DAILY Amlodipine (Amlodipine Besylate) 2.5 Mg Tab 2.5 Mg G-TUBE DAILY Allopurinol 100 Mg Tab 100 Mg G-TUBE DAILY Pravastatin 10 Mg Tab 10 Mg G-TUBE HS Klonopin (Clonazepam) 0.5 Mg Tab 0.5 Mg G-TUBE HS . Current Medications Medications (Trade) Dose Ordered Sig/Sylvester Route Start Time Stop Time Status Last Admin Sodium Chloride 1,000 ml @ 200 mls/hr Q5H IV 10/05/16 10:30 10/06/16 08:32 (Levophed-Dextrose Drip) 250 ml @ 0 mls/hr TITRATE IV 10/05/16 10:30 10/06/16 11:37 Terbutaline Sulfate 1 mg 1 mg UNSCH PRN SQ 10/05/16 10:30 Pharmacy Profile Note 0 ml @ 0 mls/hr UNSCH OTHER 10/05/16 15:45 Fentanyl Citrate 250 ml @ 0 mls/hr TITRATE IV 10/05/16 15:45 10/06/16 04:03 (Diprivan 1000 Mg/100ml Inj) 100 ml @ 0 mls/hr TITRATE IV 10/05/16 15:45 (D50w (Vial) Inj) 25 ml UNSCH PRN IV PUSH 10/05/16 15:45 (NovoLIN R SUPPLEMENTAL SCALE) 1 Q6HR SQ 10/05/16 18:00 10/06/16 11:37 (NS Flush) 2 ml UNSCH PRN IV FLUSH 10/05/16 15:45 (NS Flush) 2 ml BID IV FLUSH 10/05/16 21:00 10/06/16 08:25 (Protonix Inj) 40 mg DAILY IV 10/06/16 09:00 10/06/16 08:25 (Zofran Inj) 4 mg Q6H PRN IV 10/05/16 15:45 (Alexus-Colace) 2 tab BID PO 10/05/16 21:00 10/06/16 08:25 Miscellaneous Information 1 Q361D XX 10/05/16 15:45 10/05/16 15:45 (Chlorhexidine 2% Cloth) 3 pack Taper DAILY@04 TOP 10/06/16 04:00 10/02/17 03:59 10/06/16 04:00 (Chlorhexidine 2% Cloth) 3 pack UNSCH PRN TOP 10/05/16 15:45 (Peridex 0.12% Liq) 15 ml BID@08,20 MT 10/05/16 20:00 10/06/16 08:24 Pravastatin Sodium 10 mg 10 mg HS G-TUBE 10/05/16 21:00 10/05/16 21:15 (Maxipime Inj/NS Inj) 100 ml @ 200 mls/hr Q24H IV 10/06/16 09:00 10/06/16 08:25 Heparin Sodium (Porcine) 5000 units 5,000 units Q8HR SQ 10/05/16 22:00 10/06/16 04:03 (Vancomycin Inj/ NS 250 ml Inj) 262 ml @ 250 mls/hr Q24H IV 10/06/16 04:00 10/06/16 04:00 Miscellaneous Information SPECIFIC LAB TO BE DRAWN:VANCO TROUGH DATE TO... ONCE ONCE XX 10/07/16 03:45 10/07/16 03:46 Miscellaneous Information Patient in critical care unit? Ass... Q361D XX 10/05/16 19:30 10/05/16 19:30 (Chlorhexidine 2% Cloth) 3 pack DAILY@04 TOP 10/06/16 04:00 10/10/16 04:01 Chlorhexidine Gluconate 3 pack 3 pack UNSCH PRN TOP 10/05/16 19:30 10/10/16 19:16 Metronidazole 100 ml @ 100 mls/hr Q8H IV 10/05/16 23:00 10/06/16 05:17 (Pitressin Inj/ D5W 100 ml Inj) 100 ml @ 4.5 mls/hr [id number] IV 10/06/16 07:51 10/06/16 08:32 Family History According to the patient's stepdaughter/healthcare proxy, both of the patient's parents at older ages, unknown causes. Stepdaughter knows of no other family members who've had significant psychiatric illness. . Substance Use Tobacco: Prior smoker Alcohol: None to the skilled nursing Prescription med abuse: None reported Illicits: None reported . Psychosocial History The patient was born and raised in [place], [place], but moved to [place] in the 1970s and has lived in this area for quite some time. He lives alone after his in 2007, but after his hospitalization for a diabetic foot infection in January 2016, he was subsequently in a skilled nursing for attempted rehabilitation (that seemed to fail) and then admitted to the local [place] skilled nursing where he has been continuously since April 2016. The patient served in the [employer], and stepdaughter Gregoria is not sure how many years he was there. He has been 100% disabled since then, and she believes that is due to his mental illnesses. The patient had no children, his parents are , and he has no living siblings. He does have 4 stepchildren, including 3 stepsons (one of which is in this area) and his stepdaughter Gregoria who describes herself as being "very close" to the patient. During the hospitalization at [facility] last month, Gregoria was appointed as durable POA, and also completed healthcare proxy paperwork. . Spiritual/Cultural Factors Stepdaughter/HCP Gregoria reports that the patient is a Nondenominational Adventist, unaffiliated with any particular moravian or denomination, and that spirituality has been very important for the patient. She specifically requests that one of our chaplains see the patient each day. . Living Will: Never completed Health Care Surrogate: Copy in medical record Durable Power of De Alcholizer: Copy in medical record Health Care Surrogate(s): Stepdaughter Gregoria Munguia . Family/friends goals: The patient's stepdaughter/HCP Gregoria now has a good understanding of the patient' s condition, acknowledges and recognizes his steady decline over the past few months, and understands his poor prognosis. She is a truck terminal manager, currently in [place], but is heading this way and thinks she will be able to be here by the evening of 10/09/16. She does not want to limit care or resuscitation attempts at least until she is able to see him again. . Ethical and Legal Issues There are no ethical issues that would impact his care or decision-making at this time. The patient lacks capacity for decision-making, and he will not regain that capacity. His stepdaughter Gregoria is healthcare proxy. . Physical Exam Vital Signs Date Time Temp Pulse Resp B/P Pulse Ox O2 Delivery O2 Flow Rate FiO2 10/06/16 12:00 81 10/06/16 12:00 50 10/06/16 12:00 100.7 81 15 107/56 94 10/06/16 12:00 81 107/56 10/06/16 11:04 94 50 10/06/16 10:00 135 10/06/16 08:00 100.1 79 22 84/45 93 10/06/16 08:00 79 84/45 10/06/16 08:00 79 10/06/16 08:00 50 10/06/16 07:21 93 50 10/06/16 06:00 73 10/06/16 04:03 94 50 10/06/16 04:00 92 10/06/16 04:00 100.3 92 37 113/54 94 10/06/16 04:00 50 10/06/16 04:00 92 113/54 10/06/16 02:00 60 10/06/16 01:24 93 50 10/06/16 00:00 59 10/06/16 00:00 99.3 59 18 94/51 95 10/06/16 00:00 59 94/51 10/06/16 00:00 100 10/05/16 22:00 95 50 10/05/16 22:00 60 10/05/16 20:00 89 10/05/16 20:00 59 102/59 10/05/16 20:00 98.9 89 33 109/58 93 10/05/16 20:00 100 10/05/16 19:18 96 40 10/05/16 18:00 59 10/05/16 17:13 95 40 10/05/16 16:00 97.8 59 17 101/58 98 10/05/16 16:00 59 10/05/16 16:00 59 101/58 10/05/16 14:00 59 10/05/16 10/06/16 19:00 07:00 Intake Total 608 ml 3742 ml Output Total 600 ml 2125 ml Balance 8 ml 1617 ml Intake IV Total 608 ml 3742 ml Output Urine Total 600 ml 2125 ml Exam CONSTITUTIONAL/GENERAL: This is an elderly, frail-appearing patient, who appears distressed when stimulated. TUBES/LINES/DRAINS: Endotracheal tube, [place] catheter, SCDs SKIN: No jaundice, rashes, or lesions. Ecchymoses on upper extremities. No wounds seen anteriorly. Skin temperature appropriate. Not diaphoretic. HEAD: Atraumatic. Normocephalic. EYES: Pupils equal and round and reactive. No scleral icterus. No injection or drainage. Fundi not examined. ENT: Unable to assess hearing. Nose without bleeding or purulent drainage. NECK: Trachea midline. Supple, nontender. No palpable thyroid enlargement or nodularity. CARDIOVASCULAR: Regular rate and rhythm without murmurs, gallops, or rubs. No JVD. Peripheral pulses symmetric. RESPIRATORY/CHEST: Symmetric, unlabored respirations. Diminished breath sounds , scattered rhonchi. GASTROINTESTINAL: Abdomen soft, non-tender, nondistended. No hepato-splenomegaly , or palpable masses. No guarding. Bowel sounds present. GENITOURINARY: Without palpable bladder distension. Urb[place] catheter in place. MUSCULOSKELETAL: Extremities without clubbing, cyanosis, or edema. No joint tenderness or effusion noted. No calf tenderness. No mottling or clubbing. LYMPHATICS: No palpable cervical or supraclavicular adenopathy. NEUROLOGICAL: The patient appears awake. He raises his arms and shakes his arms and legs when he is stimulated. Does not follow commands, does not answer questions.. PSYCHIATRIC: Agitation and restlessness when stimulated .. Diagnostic Tests Laboratory Laboratory Tests Test 10/05/16 10/05/16 10/05/16 10/05/16 08:00 08:11 08:25 09:02 Blood Gas Puncture Site LT RADIAL Blood Gas Patient Temperature 98.6 Blood Gas HCO3 25 mmol/L (22-26) Blood Gas Base Excess -1.0 mmol/L (-2-2) Blood Gas Oxygen Saturation 90 % (90-100) Arterial Blood pH 7.30 (7.380-7.420) Arterial Blood Partial 51 mmHg (38-42) Pressure CO2 Arterial Blood Partial 69 mmHG Pressure O2 (61-120) Arterial Blood Oxygen Content 14.5 Vol % (12.0-20.0) Arterial Blood 1.8 % (0-4) Carboxyhemoglobin Arterial Blood Methemoglobin 1.8 % (0-2) Blood Gas Hemoglobin 11.4 G/DL (12.0-16.0) Oxygen Delivery Device VENTILATOR Blood Gas Ventilator Setting PRVC/AC Blood Gas Inspired Oxygen 100 % White Blood Count 13.1 TH/MM3 (4.0-11.0) Red Blood Count 3.60 MIL/MM3 (4.50-5.90) Hemoglobin 11.1 GM/DL (13.0-17.0) Hematocrit 35.2 % (39.0-51.0) Mean Corpuscular Volume 97.8 FL (80.0-100.0) Mean Corpuscular Hemoglobin 30.8 PG (27.0-34.0) Mean Corpuscular Hemoglobin 31.4 % Concent (32.0-36.0) Red Cell Distribution Width 15.4 % (11.6-17.2) Platelet Count 444 TH/MM3 (150-450) Mean Platelet Volume 9.2 FL (7.0-11.0) Neutrophils (%) (Auto) 92.5 % (16.0-70.0) Lymphocytes (%) (Auto) 2.4 % (9.0-44.0) Monocytes (%) (Auto) 5.0 % (0.0-8.0) Eosinophils (%) (Auto) 0.0 % (0.0-4.0) Basophils (%) (Auto) 0.1 % (0.0-2.0) Neutrophils # (Auto) 12.1 TH/MM3 (1.8-7.7) Lymphocytes # (Auto) 0.3 TH/MM3 (1.0-4.8) Monocytes # (Auto) 0.7 TH/MM3 (0-0.9) Eosinophils # (Auto) 0.0 TH/MM3 (0-0.4) Basophils # (Auto) 0.0 TH/MM3 (0-0.2) CBC Comment DIFF FINAL Differential Comment Prothrombin Time 10.9 SEC (9.8-11.6) Prothromb Time International 1.0 RATIO Ratio Activated Partial 22.2 SEC Thromboplast Time (24.3-30.1) Sodium Level 149 MEQ/L (136-145) Potassium Level 5.5 MEQ/L (3.5-5.1) Chloride Level 112 MEQ/L (98-107) Carbon Dioxide Level 25.4 MEQ/L (21.0-32.0) Anion Gap 12 MEQ/L (5-15) Blood Urea Nitrogen 55 MG/DL (7-18) Creatinine 2.46 MG/DL (0.60-1.30) Estimat Glomerular Filtration 26 ML/MIN (>89) Rate Random Glucose 227 MG/DL (74-106) Calcium Level 10.0 MG/DL (8.5-10.1) Total Bilirubin 0.3 MG/DL (0.2-1.0) Aspartate Amino Transf 32 U/L (15-37) (AST/SGOT) Alanine Aminotransferase 18 U/L (12-78) (ALT/SGPT) Alkaline Phosphatase 84 U/L (45-117) Troponin I 0.03 NG/ML (0.02-0.05) Total Protein 8.0 GM/DL (6.4-8.2) Albumin 2.1 GM/DL (3.4-5.0) Lactic Acid Level 4.3 mmol/L (0.4-2.0) Urine Color YELLOW (YELLW/STRAW) Urine Turbidity HAZY (CLEAR) Urine pH 5.5 (5.0-8.5) Urine Specific [place] 1.013 (1.002-1.035) Urine Protein 30 mg/dL (NEG-TRACE) Urine Glucose (UA) NEG mg/dL (NEG) Urine Ketones NEG mg/dL (NEG) Urine Occult Blood NEG (NEG) Urine Nitrite NEG (NEG) Urine Bilirubin NEG (NEG) Urine Urobilinogen LESS THAN 2.0 MG/DL (LESS THAN 2.0) Urine Leukocyte Esterase SMALL (NEG) Urine RBC 1 /hpf (0-3) Urine WBC 2 /hpf (0-5) Urine Squamous Epithelial 1 /hpf (0-5) Cells Urine Transitional Epithelial <1 /hpf (NONE) Cells Urine Amorphous Sediment MOD Urine Bacteria OCC /hpf (NONE) Urine Mucus FEW /lpf (OCC) Microscopic Urinalysis Comment CATH-CULTURE IND Test 10/05/16 10/05/16 10/05/16 10/06/16 10:49 14:30 16:24 04:00 Lactic Acid Level 1.7 mmol/L (0.4-2.0) Nasal Screen MRSA (PCR) POSITIVE (NEGATIVE) Sodium Level 147 MEQ/L 153 MEQ/L (136-145) (136-145) Potassium Level 5.3 MEQ/L 4.4 MEQ/L (3.5-5.1) (3.5-5.1) Chloride Level 118 MEQ/L 121 MEQ/L (98-107) (98-107) Carbon Dioxide Level 20.5 MEQ/L 24.7 MEQ/L (21.0-32.0) (21.0-32.0) Anion Gap 9 MEQ/L (5-15) 7 MEQ/L (5-15) Blood Urea Nitrogen 56 MG/DL (7-18) 52 MG/DL (7-18) Creatinine 2.17 MG/DL 1.98 MG/DL (0.60-1.30) (0.60-1.30) Estimat Glomerular Filtration 30 ML/MIN (>89) 33 ML/MIN (>89) Rate Random Glucose 355 MG/DL 108 MG/DL (74-106) (74-106) Calcium Level 8.9 MG/DL 8.9 MG/DL (8.5-10.1) (8.5-10.1) White Blood Count 14.0 TH/MM3 (4.0-11.0) Red Blood Count 3.15 MIL/MM3 (4.50-5.90) Hemoglobin 9.6 GM/DL (13.0-17.0) Hematocrit 31.2 % (39.0-51.0) Mean Corpuscular Volume 99.1 FL (80.0-100.0) Mean Corpuscular Hemoglobin 30.5 PG (27.0-34.0) Mean Corpuscular Hemoglobin 30.8 % Concent (32.0-36.0) Red Cell Distribution Width 15.8 % (11.6-17.2) Platelet Count 329 TH/MM3 (150-450) Mean Platelet Volume 7.6 FL (7.0-11.0) Result Diagram: 10/06/16 0400 10/06/16 0400 Microbiology Microbiology Date/Time Procedure Status Source Growth 10/05/16 08:11 Aerobic Blood Culture - Preliminary Resulted Blood Peripheral NO GROWTH IN 1 DAY 10/05/16 08:11 Anaerobic Blood Culture - Preliminary Resulted Blood Peripheral NO GROWTH IN 1 DAY 10/05/16 08:16 Aerobic Blood Culture - Preliminary Resulted Blood Peripheral NO GROWTH IN 1 DAY 10/05/16 08:16 Anaerobic Blood Culture - Preliminary Resulted Blood Peripheral NO GROWTH IN 1 DAY 10/05/16 09:02 Gram Stain - Final Resulted Sputum Expectorated Sputum 10/05/16 09:02 Sputum Culture Resulted Sputum Expectorated Sputum Pending 10/05/16 09:02 Urine Culture Received Urine Clean Catch Pending Imaging Last Impressions Chest X-Ray 10/06/16 0600 Signed Impressions: Service Date/Time: Thursday, October 06, 2016 03:08 - CONCLUSION: Diffuse bilateral airspace disease. Ananth Dozier MD Head CT 10/05/16 0000 Signed Impressions: Service Date/Time: Wednesday, October 05, 2016 09:24 - CONCLUSION: Negative for an acute process.. Eric Mcclellan MD FACR Procedures INTUBATION 10/05/16 . Patient/Family Conference Family Conference Time (mins): 39 Family Conference Location: Telephone Issues Discussed: * Palliative care role, purpose, approach * Additional medical, psychosocial, and spiritual history * Patients general health, functional status, and cognitive changes in the months leading up to the current hospitalization * Patient/family understanding of the current medical problems * Patient/family understanding of prognosis * Patients goals of care as best understood from advance directives and/or conversations and/or values * Current medical treatment options and benefits/burdens of those options * Likely scenarios comparing ongoing aggressive care with a transition to comfort measures only * Questions answered to the best of my ability * Palliative care contact information provided . Assessment and Plan Disease Oriented Problem List: (1) sepsis, septic shock (2) pneumonia, probable aspiration (3) respiratory failure (4) metabolic encephalopathy (5) BPH (6) diabetes (7) anemia (8) hyperlipidemia (9) anxiety (10) Charcot joint/neuropathic osteoarthropathy (11) long history of psychiatric illness, schizophrenia, bipolar disorder (12) chronic kidney disease (13) recent admission for UTI (14) recent dysphagia, PEG tube placed to weeks prior to admission (15) depression (16) COPD Symptom Scale: (1) agitation 0-10 Scale: 5 (with any stimulation) (2) dyspnea 0-10 Scale: Unable to quantify (mechanical ventilation) Pertinent Non-Medical Issues Psychosocial: , no biologic family, close to his stepdamoreno Kinney. 100% disabled vet with significant long-term psychiatric illness. Spiritual: Stepdaughter/HCP Gregoria reports that the patient is a Nondenominational Adventist, unaffiliated with any particular moravian or denomination, and that spirituality has been very important for the patient. She specifically requests that one of our chaplains see the patient each day. Legal: The patient lacks capacity for decision-making, and he will not regain that capacity. His stepdaughter Gregoria is healthcare proxy. Ethical issues impacting care: None. . Important Contacts Stepdaughter/HCP Gregoria Ezra [phone] . Prognosis The patient's prognosis is poor. He has been declining for several months, with worsening weakness and recurrent episodes of infection/sepsis. He had a PEG tube placed last month because of dysphagia, and now appears to have aspirated and has bilateral pneumonia with respiratory failure. Certainly he is a candidate and is appropriate for hospice services if the goals evolved to become comfort oriented. . Code Status: Full Code Plan * FULL CODE -- at least until danica Kinney has the chance to drive here from the [place] to see him again. * GOALS: The patient's stepdaughter/HCP Gregoria now has a good understanding of the patient's condition, acknowledges and recognizes his steady decline over the past few months, and understands his poor prognosis. She is a truck terminal manager, currently in [place], but is heading this way and thinks she will be able to be here by the evening of 1/12/17. She does not want to limit current aggressive care care or resuscitation attempts at least until she is able to see him again. * DECISION-MAKING: The patient lacks capacity for decision-making, and he will not regain that capacity. His stepdaughter Gregoria is the durable POA and healthcare proxy. * SYMPTOMS: The patient's respiratory failure/dyspnea is being managed via mechanical ventilation. The agitation is becoming problematic, and the patient may benefit from some Haldol.. * Parach[place] Tier services requested * Palliative Care will continue to follow the patient during this hospitalization. . Time Spent Total Floor Time (mins): 76 Face to Face Time (mins): 41 >50% Counseling/Coord of Care: Yes (discussed with Dr. Valdez and with RN) Thank you for the opportunity to participate in the care of Mr. Mitchell. Attestation To help prompt me to consider important information that might be impacting today's encounter and assessment, information from prior notes written by myself or my colleagues may have been "brought forward" into today's note. My signature on this note, however, is an attestation that I personally performed the exam, history, and/or decision-making noted today, and, unless otherwise indicated, the interactions with patient, family, and staff as well as the review of records all occurred today. I also attest that the listed assessment and stated plan reflect my best clinical judgment today based on the combination of historical information, prior notes, and today's exam/ interactions. When time spent is documented, it refers only to time spent today by the signer, or if indicated, combined time spent today by collaborating physician/nurse practitioner. Crystal Velarde MD Oct 06, 2016 14:21
--- NOTE | 2016-10-06 18:17 | HHI.CCPN ---
Subjective Remarks/Hospital Course This is a 76-year-old male who presented the emergency room from a alf facility after he had an acute mental status change and was noticed to have vomited around his tracheostomy site and hypoxia. Per report, he was seen normal earlier in the morning. He is apparently somewhat confused at baseline. He has a long psychiatric history. For EMS, the patient had a GCS of 3. He was intubated in the field. In the emergency room he was hypotensive with systolics in the 60s. He was given IV fluid boluses. He was febrile to 101. He was started on empiric antibiotics. Central line was placed. He was started on norepinephrine. Critical care medicine is consult to evaluate and manage septic shock. 10/06: The patient remains at baseline, neurological status unchanged. Not following any commands, spontaneous eye opening. The patient continues on norepinephrine, MAP low 60's. Vasopressin added this a.m.. Patient continues on empiric antibiotics. Palliative medicine has been consulted, or discussion regarding goals of care. Objective Vital Signs Date Time Temp Pulse Resp B/P Pulse Ox O2 Delivery O2 Flow Rate FiO2 10/06/16 16:00 40 10/06/16 16:00 82 10/06/16 16:00 99.4 15 99/56 93 10/05/16 12:22 Ventilator Intake and Output 10/05/16 10/05/16 10/06/16 08:00 16:00 00:00 Intake Total 608 ml 2329 ml Output Total 200 ml 1425 ml Balance 408 ml 904 ml Result Diagram: 10/06/16 0400 10/06/16 0400 Objective Remarks GENERAL: Elderly male, lying in bed, intubated, sedated and critically ill. HEENT: Normocephalic. Atraumatic. Pupils equally round and reactive. NECK: Trachea is midline. There is no JVD. Orotracheally intubated, copious amount of secretions. CHEST: Equal chest rise. Coarse breath sounds bilaterally. Intubated. CARDIOVASCULAR: Bradycardic rate, regular rhythm. There are pacer spikes which do not correlate with QRS. ABDOMEN: Soft, nontender, nondistended. No guarding. There is a PEG tube exit subxiphoid. The site is clean and dry. MUSCULOSKELETAL: Moves all extremities. Distal pulses 2+. No peripheral edema. NEUROLOGICAL: RASS -4. moves all extremities, non-purposeful. nonfocal. Urinary Catheter: Yes Date of Insertion: Oct 05, 2016 Vascular Central Line Catheter: Yes Date of Insertion: Oct 05, 2016 Side: Right Location: Internal, Jugular A/P Assessment and Plan Assessment: This is a 76-year-old male with long psychiatric history, chronically critically ill with PEG tube placement who presents with what appears to be an aspiration-like event, septic shock, possible aspiration pneumonia. During his mental status is likely accommodation of his baseline psychiatric illness along with his septic shock. He is very critically ill. I' m very concerned given his age and multiple comorbidities, that he may not do well long-term. We will consult palliative care and have them assist with goals of care discussion. His prognosis is guarded. Plan by systems: Neurologic: Bipolar disorder Schizophrenia Metabolic encephalopathy Propofol, fentanyl for goal RASS-1 Daily sedation vacation Hold antipsychotics Respiratory: Acute hypoxic respiratory failure Probable aspiration pneumonia Head of bed at 30 Vent bundle Wean FiO2 for goal SPO2 greater than 90% Low tidal volume ventilation targeting 6 cc/kg ideal body weight Does not meet SBT criteria Cardiovascular: Septic shock Pacemaker Patient clinically appears hypovolemic at this time and oliguric. We will give the patient 1 L LR bolus Maintenance fluids normal saline 200 cc an hour 10/05 Interrogation completed, 3225 films DDDR Continue norepinephrine for goal MAP greater than 65mmHg Trend CVP. Renal: Acute kidney injury Likely prerenal from septic shock Every hour urine outputs Urb[place] -- Strict I/Os FEN/GI: Acute protein calorie malnutritionsevere Chronic dysphagia Nothing by mouth G-tube to gravity Fluids as above Heme/ID: Possible aspiration pneumonia Septic shock Vancomycin with pharmacy dosing Cefepime 1 g every 24 hours, renal dose Flagyl 500 mg IV every 8 Follow-up sputum, blood, urine cultures Endocrine: Hyperglycemia of critical illness -- SSI to every 6 hours, medium scale Prophylaxis: GI Prophylaxis Protonix 40 mg IV every 12 hours DVT Prophylaxis -- SCDs Subcutaneous heparin Lines: 10/05 right IJ triple lumen catheter U[place] Dispo: Discussed with FEED MILLER at bedside. This patient remains critically ill with one or more organ systems which are or may become a threat to life. I have spent in excess of 33 minutes discontinuously in the care and management of this patient. This time is exclusive of procedures, and includes, but is not limited to, evaluation of the patient, review of the medical record, discussions with family, consultants, nursing staff, or respiratory therapy, and documentation in the medical record. Physician Estela Terry MD Oct 06, 2016 18:17
[2016-10-06] MEDS: PRAVASTATIN SOD 10 MG TAB G-TUBE SCH (20:08)
[2016-10-07] VITALS (19 sets, daily range): BP systolic 83–113; BP diastolic 51–64; PULSE 59–120; RESP 15–24; TEMP 97.3–99.2; O2SAT 93–99
[2016-10-07] MEDS: NOREPINEPHRINE-DEXTROSE DRIP 250 ML IV SCH ×3 (01:20→19:29)
[2016-10-07] MEDS: SODIUM CHLOR 0.9% 1000 ML INJ 1,000 ML IV SCH ×2 (01:21→06:58)
[2016-10-07] MEDS ORDERED: PHARMACY ORDERED LAB XX ONE (03:45)
[2016-10-07] MEDS: CHLORHEXIDINE GLUCONATE 2 % 1 PACK (2 CLOTHS)(taper/protocol) TOP SCH (04:00)
[2016-10-07] MEDS: CHLORHEXIDINE GLUCONATE 2 % 1 PACK (2 CLOTHS) TOP SCH (04:00)
[2016-10-07] MEDS: RESP: ALBUTEROL 2.5 MG/IPRATROPIUM 0.5 MG NEB (SCH) INH ×4 (04:02→21:28)
[2016-10-07] MEDS: VANCOMYCIN INJ 1,200 MG in SODIUM CHLOR 0.9% 250 ML INJ 250 ML IV SCH (04:17)
[2016-10-07 05:52] LABS: HEMATOCRIT 27.3 % (39.0-51.0); MEAN CELL VOLUME 100.4 FL (80.0-100.0); MEAN CORPUSCULAR HEMOGLOBIN 31.6 PG (27.0-34.0); MEAN CORPUSCULAR HGB CONC 31.5 % (32.0-36.0); PLATELET COUNT 289 TH/MM3 (150-450); RED BLOOD COUNT 2.72 MIL/MM3 (4.50-5.90); RED CELL DISTRIBUTION WIDTH 16.2 % (11.6-17.2); REVIEW FLAG FINAL; WHITE BLOOD COUNT 13.4 TH/MM3 (4.0-11.0)
[2016-10-07] MEDS: INSULIN NovoLIN REGULAR SUPPLEMENTAL SCALE SQ SCH ×4 (06:00→18:00)
[2016-10-07 06:17] LABS: BICARBONATE 23.1 MEQ/L (21.0-32.0); POTASSIUM 4.6 MEQ/L (3.5-5.1)
[2016-10-07] MEDS: HEPARIN SODIUM - SQ 10,000 UNITS/ML VIAL SQ SCH ×3 (06:24→22:43)
[2016-10-07] MEDS: metroNIDAZOLE 500 MG INJ 100 ML IV SCH ×3 (06:25→22:43)
[2016-10-07] MEDS: VASOPRESSIN INJ 40 UNITS in DEXTROSE 5% IN WATER 100ML INJ 98 ML IV SCH ×2 (07:41)
[2016-10-07] MEDS: CHLORHEXIDINE 0.12% (ORAL KIT) 15 ML CUP MT SCH ×2 (07:43→19:28)
[2016-10-07] MEDS: DOCUSATE SODIUM 50 MG/SENNA 8.6 MG TAB PO SCH ×2 (09:38→19:29)
[2016-10-07] MEDS: PANTOPRAZOLE SODIUM 40 MG VIAL IV SCH (09:38)
[2016-10-07] MEDS: CEFEPIME INJ 1,000 MG in SODIUM CHLORIDE 0.9% INJ 100 ML IV SCH (09:38)
[2016-10-07] MEDS: SODIUM CHLORIDE 0.9% FLUSH 5 ML FLUSH IV FLUSH SCH ×2 (09:38→19:30)
[2016-10-07] MEDS: fentaNYL DRIP 250 ML IV SCH ×2 (10:31→15:54)
--- NOTE | 2016-10-07 11:03 | HHI.HCPN ---
Reason for visit a. To assist with evaluation and management of symptoms including: b. To assist medical decision maker(s) with: better understanding of current medical conditions; weighing benefits/burdens of medical treatment options; making medical treatment decisions. Subjective/Interval History INTERVAL NOTE: The patient is seen in the [facility] bed, he remains mechanically ventilated. He has been afebrile since yesterday noon. Blood cultures are still reported as negative, and purulent material from his ET tube grew staph aureus. The propofol is being decreased this morning in an attempt to see if he can be weaned from the pressors. His creatinine is fairly stable at 2.05, his white count is 13.4 today. . Family/friend interactions Discussion with stepdaughter/HCP via telephone. I have made her quite aware of the patient's poor prognosis, and we reviewed his steady decline over the past several months. She understands that it is a "bad sign" that he developed dysphagia during his UTI/sepsis hospitalization 2 or 3 weeks ago, and is another "bad sign" that he now has apparently aspirated while receiving artificial nutrition at his [facility]. She understands that he will continue to decline. The most important thing to her now is that she gets "to see him one more time," and she is driving her truck south from [place] today and hopes to be here by evening. . Advance Directives Living Will: Never completed Health Care Surrogate: Copy in medical record Durable Power of Mixing Tumbler Operator: Copy in medical record Advance Directive Specifics Health Care Surrogate(s): Stepdaughter Gregoria Munguia . Objective Vital Signs Date Time Temp Pulse Resp B/P Pulse Ox O2 Delivery O2 Flow Rate FiO2 10/07/16 08:10 94 40 10/07/16 06:00 59 10/07/16 04:00 120 10/07/16 04:00 98.7 120 15 93/56 93 10/07/16 04:00 120 93/56 10/07/16 04:00 40 10/07/16 03:54 95 40 10/07/16 02:00 65 10/07/16 00:31 93 40 10/07/16 00:00 40 10/07/16 00:00 99.2 63 15 97/52 95 10/07/16 00:00 63 10/07/16 00:00 114 97/52 10/06/16 22:30 93 40 1/9/17 22:00 60 10/06/16 20:00 114 10/06/16 20:00 40 10/06/16 20:00 114 126/62 10/06/16 20:00 98.8 114 28 126/62 92 10/06/16 19:59 93 40 10/06/16 18:00 61 10/06/16 16:00 40 10/06/16 16:00 82 10/06/16 16:00 99.4 82 15 99/56 93 10/06/16 16:00 82 99/56 10/06/16 15:21 95 40 10/06/16 14:00 65 10/06/16 12:00 81 10/06/16 12:00 50 10/06/16 12:00 100.7 81 15 107/56 94 10/06/16 12:00 81 107/56 10/06/16 11:04 94 50 Intake & Output 10/07/16 10/07/16 07:00 19:00 Intake Total 4283 ml Output Total 2300 ml Balance 1983 ml Intake IV Total 4133 ml Tube Irrigant 150 ml Output Urine Total 2300 ml Physical Exam CONSTITUTIONAL/GENERAL: This is an elderly, frail-appearing patient, who appears distressed when stimulated. TUBES/LINES/DRAINS: Endotracheal tube, Urb[place] catheter, SCDs SKIN: No jaundice, rashes, or lesions. Ecchymoses on upper extremities. No wounds seen anteriorly. Skin temperature appropriate. Not diaphoretic. ENT: Unable to assess hearing. Nose without bleeding or purulent drainage. NECK: Trachea midline. Supple, nontender. No palpable thyroid enlargement or nodularity. CARDIOVASCULAR: Regular rate and rhythm without murmurs, gallops, or rubs. No JVD. Peripheral pulses symmetric. RESPIRATORY/CHEST: Symmetric, unlabored respirations. Diminished breath sounds , scattered rhonchi. GASTROINTESTINAL: Abdomen soft, non-tender, nondistended. No hepato-splenomegaly , or palpable masses. No guarding. Bowel sounds present. GENITOURINARY: Without palpable bladder distension. Urbina catheter in place. MUSCULOSKELETAL: Extremities without clubbing, cyanosis, or edema. No joint tenderness or effusion noted. No calf tenderness. No mottling or clubbing. NEUROLOGICAL: The patient appears awake. He raises his arms and shakes his arms and legs when he is stimulated. Does not follow commands, does not answer questions.. PSYCHIATRIC: Agitation and restlessness when stimulated .. Diagnostic Tests Laboratory Laboratory Tests Test 10/05/16 10/05/16 10/05/16 10/05/16 08:00 08:11 08:25 09:02 Blood Gas Puncture Site LT RADIAL Blood Gas Patient Temperature 98.6 Blood Gas HCO3 25 mmol/L (22-26) Blood Gas Base Excess -1.0 mmol/L (-2-2) Blood Gas Oxygen Saturation 90 % (90-100) Arterial Blood pH 7.30 (7.380-7.420) Arterial Blood Partial 51 mmHg (38-42) Pressure CO2 Arterial Blood Partial 69 mmHG Pressure O2 (61-120) Arterial Blood Oxygen Content 14.5 Vol % (12.0-20.0) Arterial Blood 1.8 % (0-4) Carboxyhemoglobin Arterial Blood Methemoglobin 1.8 % (0-2) Blood Gas Hemoglobin 11.4 G/DL (12.0-16.0) Oxygen Delivery Device VENTILATOR Blood Gas Ventilator Setting PRVC/AC Blood Gas Inspired Oxygen 100 % White Blood Count 13.1 TH/MM3 (4.0-11.0) Red Blood Count 3.60 MIL/MM3 (4.50-5.90) Hemoglobin 11.1 GM/DL (13.0-17.0) Hematocrit 35.2 % (39.0-51.0) Mean Corpuscular Volume 97.8 FL (80.0-100.0) Mean Corpuscular Hemoglobin 30.8 PG (27.0-34.0) Mean Corpuscular Hemoglobin 31.4 % Concent (32.0-36.0) Red Cell Distribution Width 15.4 % (11.6-17.2) Platelet Count 444 TH/MM3 (150-450) Mean Platelet Volume 9.2 FL (7.0-11.0) Neutrophils (%) (Auto) 92.5 % (16.0-70.0) Lymphocytes (%) (Auto) 2.4 % (9.0-44.0) Monocytes (%) (Auto) 5.0 % (0.0-8.0) Eosinophils (%) (Auto) 0.0 % (0.0-4.0) Basophils (%) (Auto) 0.1 % (0.0-2.0) Neutrophils # (Auto) 12.1 TH/MM3 (1.8-7.7) Lymphocytes # (Auto) 0.3 TH/MM3 (1.0-4.8) Monocytes # (Auto) 0.7 TH/MM3 (0-0.9) Eosinophils # (Auto) 0.0 TH/MM3 (0-0.4) Basophils # (Auto) 0.0 TH/MM3 (0-0.2) CBC Comment DIFF FINAL Differential Comment Prothrombin Time 10.9 SEC (9.8-11.6) Prothromb Time International 1.0 RATIO Ratio Activated Partial 22.2 SEC Thromboplast Time (24.3-30.1) Sodium Level 149 MEQ/L (136-145) Potassium Level 5.5 MEQ/L (3.5-5.1) Chloride Level 112 MEQ/L (98-107) Carbon Dioxide Level 25.4 MEQ/L (21.0-32.0) Anion Gap 12 MEQ/L (5-15) Blood Urea Nitrogen 55 MG/DL (7-18) Creatinine 2.46 MG/DL (0.60-1.30) Estimat Glomerular Filtration 26 ML/MIN (>89) Rate Random Glucose 227 MG/DL (74-106) Calcium Level 10.0 MG/DL (8.5-10.1) Total Bilirubin 0.3 MG/DL (0.2-1.0) Aspartate Amino Transf 32 U/L (15-37) (AST/SGOT) Alanine Aminotransferase 18 U/L (12-78) (ALT/SGPT) Alkaline Phosphatase 84 U/L (45-117) Troponin I 0.03 NG/ML (0.02-0.05) Total Protein 8.0 GM/DL (6.4-8.2) Albumin 2.1 GM/DL (3.4-5.0) Lactic Acid Level 4.3 mmol/L (0.4-2.0) Urine Color YELLOW (YELLW/STRAW) Urine Turbidity HAZY (CLEAR) Urine pH 5.5 (5.0-8.5) Urine Specific [place] 1.013 (1.002-1.035) Urine Protein 30 mg/dL (NEG-TRACE) Urine Glucose (UA) NEG mg/dL (NEG) Urine Ketones NEG mg/dL (NEG) Urine Occult Blood NEG (NEG) Urine Nitrite NEG (NEG) Urine Bilirubin NEG (NEG) Urine Urobilinogen LESS THAN 2.0 MG/DL (LESS THAN 2.0) Urine Leukocyte Esterase SMALL (NEG) Urine RBC 1 /hpf (0-3) Urine WBC 2 /hpf (0-5) Urine Squamous Epithelial 1 /hpf (0-5) Cells Urine Transitional Epithelial <1 /hpf (NONE) Cells Urine Amorphous Sediment MOD Urine Bacteria OCC /hpf (NONE) Urine Mucus FEW /lpf (OCC) Microscopic Urinalysis Comment CATH-CULTURE IND Test 10/05/16 10/05/16 10/05/16 10/06/16 10:49 14:30 16:24 04:00 Lactic Acid Level 1.7 mmol/L (0.4-2.0) Nasal Screen MRSA (PCR) POSITIVE (NEGATIVE) Sodium Level 147 MEQ/L 153 MEQ/L (136-145) (136-145) Potassium Level 5.3 MEQ/L 4.4 MEQ/L (3.5-5.1) (3.5-5.1) Chloride Level 118 MEQ/L 121 MEQ/L (98-107) (98-107) Carbon Dioxide Level 20.5 MEQ/L 24.7 MEQ/L (21.0-32.0) (21.0-32.0) Anion Gap 9 MEQ/L (5-15) 7 MEQ/L (5-15) Blood Urea Nitrogen 56 MG/DL (7-18) 52 MG/DL (7-18) Creatinine 2.17 MG/DL 1.98 MG/DL (0.60-1.30) (0.60-1.30) Estimat Glomerular Filtration 30 ML/MIN (>89) 33 ML/MIN (>89) Rate Random Glucose 355 MG/DL 108 MG/DL (74-106) (74-106) Calcium Level 8.9 MG/DL 8.9 MG/DL (8.5-10.1) (8.5-10.1) White Blood Count 14.0 TH/MM3 (4.0-11.0) Red Blood Count 3.15 MIL/MM3 (4.50-5.90) Hemoglobin 9.6 GM/DL (13.0-17.0) Hematocrit 31.2 % (39.0-51.0) Mean Corpuscular Volume 99.1 FL (80.0-100.0) Mean Corpuscular Hemoglobin 30.5 PG (27.0-34.0) Mean Corpuscular Hemoglobin 30.8 % Concent (32.0-36.0) Red Cell Distribution Width 15.8 % (11.6-17.2) Platelet Count 329 TH/MM3 (150-450) Mean Platelet Volume 7.6 FL (7.0-11.0) Test 10/07/16 03:50 White Blood Count 13.4 TH/MM3 (4.0-11.0) Red Blood Count 2.72 MIL/MM3 (4.50-5.90) Hemoglobin 8.6 GM/DL (13.0-17.0) Hematocrit 27.3 % (39.0-51.0) Mean Corpuscular Volume 100.4 FL (80.0-100.0) Mean Corpuscular Hemoglobin 31.6 PG (27.0-34.0) Mean Corpuscular Hemoglobin 31.5 % Concent (32.0-36.0) Red Cell Distribution Width 16.2 % (11.6-17.2) Platelet Count 289 TH/MM3 (150-450) Mean Platelet Volume 8.4 FL (7.0-11.0) Sodium Level 154 MEQ/L (136-145) Potassium Level 4.6 MEQ/L (3.5-5.1) Chloride Level 125 MEQ/L (98-107) Carbon Dioxide Level 23.1 MEQ/L (21.0-32.0) Anion Gap 6 MEQ/L (5-15) Blood Urea Nitrogen 47 MG/DL (7-18) Creatinine 2.05 MG/DL (0.60-1.30) Estimat Glomerular Filtration 32 ML/MIN (>89) Rate Random Glucose 153 MG/DL (74-106) Calcium Level 9.2 MG/DL (8.5-10.1) Vancomycin Level Trough 13.4 MCG/ML (5.0-10.0) Result Diagram: 10/07/16 0350 10/07/16 0350 Microbiology Microbiology Date/Time Procedure Status Source Growth 10/05/16 08:11 Aerobic Blood Culture - Preliminary Resulted Blood Peripheral NO GROWTH IN 1 DAY 10/05/16 08:11 Anaerobic Blood Culture - Preliminary Resulted Blood Peripheral NO GROWTH IN 1 DAY 10/05/16 08:16 Aerobic Blood Culture - Preliminary Resulted Blood Peripheral NO GROWTH IN 1 DAY 10/05/16 08:16 Anaerobic Blood Culture - Preliminary Resulted Blood Peripheral NO GROWTH IN 1 DAY 10/05/16 09:02 Gram Stain - Final Complete Sputum Expectorated Sputum 10/05/16 09:02 Sputum Culture - Final Complete Staphylococcus Aureus 10/05/16 09:02 Urine Culture - Final Complete Urine Clean Catch 50-100,000 CFU/ML MIXED GRAM POSITIVE... Imaging Last Impressions Chest X-Ray 10/06/16 0600 Signed Impressions: Service Date/Time: Thursday, October 06, 2016 03:08 - CONCLUSION: Diffuse bilateral airspace disease. Ananth Dozier MD Head CT 10/05/16 0000 Signed Impressions: Service Date/Time: Wednesday, October 05, 2016 09:24 - CONCLUSION: Negative for an acute process.. Eric Mcclellan MD FACR Procedures INTUBATION 10/05/16 . Assessment and Plan Disease Oriented Problem List: (1) sepsis, septic shock (2) pneumonia, probable aspiration (3) respiratory failure (4) metabolic encephalopathy (5) BPH (6) diabetes (7) anemia (8) hyperlipidemia (9) anxiety (10) Charcot joint/neuropathic osteoarthropathy (11) long history of psychiatric illness, schizophrenia, bipolar disorder (12) chronic kidney disease (13) recent admission for UTI (14) recent dysphagia, PEG tube placed to weeks prior to admission (15) depression (16) COPD Symptom Scale: (1) agitation 0-10 Scale: 5 (with any stimulation) (2) dyspnea 0-10 Scale: Unable to quantify (mechanical ventilation) Pertinent Non-Medical Issues Psychosocial: , no biologic family, close to his stepdaughter Gregoria. 100% disabled vet with significant long-term psychiatric illness. Spiritual: Stepdaughter/HCP Gregoria reports that the patient is a [employer] Ale[employer], unaffiliated with any particular episcopal or denomination, and that spirituality has been very important for the patient. She specifically requests that one of our chaplains see the patient each day. Legal: The patient lacks capacity for decision-making, and he will not regain that capacity. His stepdaughter Gregoria is healthcare proxy. Ethical issues impacting care: None. . Important Contacts Stepdaughter/HCP Gregoria Munguia [phone] . Prognosis The patient's prognosis is poor. He has been declining for several months, with worsening weakness and recurrent episodes of infection/sepsis. He had a PEG tube placed last month because of dysphagia, and now appears to have aspirated and has bilateral pneumonia with respiratory failure. Certainly he is a candidate and is appropriate for hospice services if the goals evolved to become comfort oriented. . Code Status: Full Code Plan * FULL CODE -- at least until stepdaughter Gregoria has the chance to drive here from the [place] to see him again.....she hopes to be here by . * GOALS: The patient's stepdaughter/HCP Gregoria has a good understanding of the patient's condition, acknowledges and recognizes his steady decline over the past few months, and understands his poor prognosis. She is a electric truck driver, currently in the [place], but is heading this way and thinks she will be able to be here by the evening of 10/09/16. She does not want to limit current aggressive care care or resuscitation attempts at least until she is able to see him again. * DECISION-MAKING: The patient lacks capacity for decision-making, and he will not regain that capacity. His stepdaughter Gregoria is the durable POA and healthcare proxy. * SYMPTOMS: The patient's respiratory failure/dyspnea is being managed via mechanical ventilation. The agitation is becoming problematic, and the patient may benefit from some Haldol.. * Palliative Care will continue to follow the patient during this hospitalization. . Time Spent Total Floor Time (mins): 41 Face to Face Time (mins): 28 >50% Counseling/Coord of Care: Yes (discussed with Dr. Valdez) Attestation To help prompt me to consider important information that might be impacting today's encounter and assessment, information from prior notes written by myself or my colleagues may have been "brought forward" into today's note. My signature on this note, however, is an attestation that I personally performed the exam, history, and/or decision-making noted today, and, unless otherwise indicated, the interactions with patient, family, and staff as well as the review of records all occurred today. I also attest that the listed assessment and stated plan reflect my best clinical judgment today based on the combination of historical information, prior notes, and today's exam/ interactions. When time spent is documented, it refers only to time spent today by the signer, or if indicated, combined time spent today by collaborating physician/nurse practitioner. Crystal Velarde MD Oct 07, 2016 11:03
--- NOTE | 2016-10-07 11:24 | HHI.CCPN ---
Subjective Remarks/Hospital Course This is a 76-year-old male who presented the emergency room from a custodial facility after he had an acute mental status change and was noticed to have vomited around his tracheostomy site and hypoxia. Per report, he was seen normal earlier in the morning. He is apparently somewhat confused at baseline. He has a long psychiatric history. For EMS, the patient had a GCS of 3. He was intubated in the field. In the emergency room he was hypotensive with systolics in the 60s. He was given IV fluid boluses. He was febrile to 101. He was started on empiric antibiotics. Central line was placed. He was started on norepinephrine. Critical care medicine is consult to evaluate and manage septic shock. 10/06: The patient remains at baseline, neurological status unchanged. Not following any commands, spontaneous eye opening. The patient continues on norepinephrine, MAP low 60's. Vasopressin added this a.m.. Patient continues on empiric antibiotics. Palliative medicine has been consulted, or discussion regarding goals of care. 10/07: Tmax 98.7. No change in neurological status on sedation holiday yesterday. The patient continues on norepinephrine and vasopressin for to maintain a MAP greater than 65. Pacemaker was interrogated, functioning properly. Sedation includes propofol and fentanyl for ventilator synchrony. Objective Vital Signs Date Time Temp Pulse Resp B/P Pulse Ox O2 Delivery O2 Flow Rate FiO2 10/07/16 08:10 94 40 10/07/16 06:00 59 10/07/16 04:00 98.7 15 93/56 10/05/16 12:22 Ventilator Intake and Output 10/06/16 10/06/16 10/07/16 08:00 16:00 00:00 Intake Total 1413 ml 2531 ml 2037 ml Output Total 1100 ml 1300 ml 1050 ml Balance 313 ml 1231 ml 987 ml Result Diagram: 10/07/16 0350 10/07/16 0350 Other Results Microbiology Date/Time Procedure Status Source Growth 10/05/16 09:02 Gram Stain - Final Complete Sputum Expectorated Sputum 10/05/16 09:02 Sputum Culture - Final Complete Staphylococcus Aureus 10/05/16 09:02 Urine Culture - Final Complete Urine Clean Catch 50-100,000 CFU/ML MIXED GRAM POSITIVE... Imaging Last Impressions Chest X-Ray 10/06/16 0600 Signed Impressions: Service Date/Time: Thursday, October 06, 2016 03:08 - CONCLUSION: Diffuse bilateral airspace disease. Ananth Dozier MD Head CT 10/05/16 0000 Signed Impressions: Service Date/Time: Wednesday, October 05, 2016 09:24 - CONCLUSION: Negative for an acute process.. Eric Mcclellan MD FACR Objective Remarks GENERAL: Critically ill-appearing male looking older than stated age, intubated and sedated. HEENT: Normocephalic. Atraumatic. Pupils equally round and reactive. NECK: Trachea is midline. There is no JVD. Orotracheally intubated, copious amount of secretions. CHEST: Equal chest rise. Coarse breath sounds bilaterally. Intubated. CARDIOVASCULAR: Atrial pacing noted, rate 61 regular rhythm. ABDOMEN: Soft, nontender, nondistended. No guarding. There is a PEG tube exit subxiphoid. The site is clean and dry. MUSCULOSKELETAL: Moves all extremities. Distal pulses 2+. No peripheral edema. NEUROLOGICAL: RASS -4. moves all extremities, non-purposeful. nonfocal. Urinary Catheter: Yes Urbina insert reason: Measure Accurate Output Date of Insertion: Oct 05, 2016 Vascular Central Line Catheter: Yes Date of Insertion: Oct 05, 2016 Side: Right Location: Internal, Jugular A/P Assessment and Plan Assessment: This is a 76-year-old male with long psychiatric history, chronically critically ill with PEG tube placement who presents with what appears to be an aspiration-like event, septic shock, possible aspiration pneumonia. During his mental status is likely accommodation of his baseline psychiatric illness along with his septic shock. He is very critically ill. I' m very concerned given his age and multiple comorbidities, that he may not do well long-term. We will consult palliative care and have them assist with goals of care discussion. His prognosis is guarded. Plan by systems: Neurologic: Bipolar disorder Schizophrenia Anxiety disorder Metabolic encephalopathy Discontinue Propofol, maintain fentanyl infusion for ventilator synchrony for goal RASS-1 Daily sedation vacation Hold antipsychotics lithium, carbamazepam Respiratory: Acute hypoxic respiratory failure Probable aspiration pneumonia COPD Head of bed at 30 Vent bundle Wean FiO2 for goal SPO2 greater than 90% Low tidal volume ventilation targeting 6 cc/kg ideal body weight -DuoNeb nebs every 4 hours scheduled, and every 6 hours when necessary Does not meet SBT criteria Cardiovascular: Septic shock Pacemaker-DDDR -Hyperlipidemia Patient clinically appears hypovolemic at this time and oliguric. We will give the patient 1 L LR bolus Maintenance fluids change to LR at 84 cc an hour 10/05 Interrogation completed, [employer] DDDR Continue norepinephrine for goal MAP greater than 65mmHg Trend CVP- 6. Renal: Acute kidney injury BPH Creatinine 1.98-->2.05 today Every hour urine outputs, Urbina -Monitor BMP -Hold home meds Finasteride,and Tamulosin -- Strict I/Os FEN/GI: Acute protein calorie malnutritionsevere Chronic dysphagia GERD Barrios's esophagus Vitamin C, D patient's Nothing by mouth -Maintain KUB , G-tube begin feeds -Resume vitamins Fluids as above Heme/ID: Possible aspiration pneumonia Septic shock Vancomycin with pharmacy dosing Cefepime 1 g every 24 hours, renal dose Flagyl 500 mg IV every 8hr -Hydrocortisone Follow-up sputum, blood, urine cultures Endocrine: Hyperglycemia of critical illness DM -Hold home meds glipizide, will consider Levemir when patient becomes stable -- SSI to every 6 hours, medium scale MSK: Gout -Begin allopurinol Prophylaxis: GI Prophylaxis Protonix 40 mg IV every 12 hours DVT Prophylaxis -- SCDs SQ heparin Lines: 10/05 right IJ triple lumen catheter 10/05, Urbina Dispo: Discussed with NET PROGRAMMER ANALYST at bedside. This patient remains critically ill with one or more organ systems which are or may become a threat to life. I have spent in excess of 37 minutes discontinuously in the care and management of this patient. This time is exclusive of procedures, and includes, but is not limited to, evaluation of the patient, review of the medical record, discussions with family, consultants, nursing staff, or respiratory therapy, and documentation in the medical record. Physician Estela Terry MD Oct 07, 2016 11:24
[2016-10-07] MEDS: LACTATED RINGER'S 1000 ML INJ 1,000 ML IV SCH ×2 (11:30→22:49)
--- NOTE | 2016-10-07 12:17 | RADRPT ---
EXAM DATE/TIME: 10/07/2016 11:42 [facility] COMPARISON: No previous studies available for comparison. INDICATIONS : Peg tube placement. MEDICAL HISTORY : Chronic obstructive pulmonary disease. SURGICAL HISTORY : Pacemaker. ENCOUNTER: Initial ACUITY: 2 days PAIN SCORE: Non-responsive. LOCATION: Bilateral abdomen FINDINGS: 2 supine frontal views of the abdomen demonstrate air within bowel in a nonobstructive pattern. Radha ter overlies the left upper quadrant the region of the stomach. This likely represents the PEG tube. No organomegaly or abnormal calcifications are seen. There are degenerative changes throughout the vanna mbar spine. CONCLUSION: The PEG tube overlies the left upper quadrant in the expected region of the stomach. Gil Mcfarlane MD on October 07, 2016 at 12:14 Board Certified Radiologist. This report was verified electronically.
[2016-10-07 12:38] LABS: BLOOD GAS BASE EXCESS -9.2 mmol/L (-2-2); BLOOD GAS CARBOXYHEMOGLOBIN 1.2 % (0-4); BLOOD GAS HCO3 18 mmol/L (22-26); BLOOD GAS METHEMOGLOBIN 1.1 % (0-2); BLOOD GAS O2 HGB SATURATION 92 % (90-100); BLOOD GAS PCO2 47 mmHg (38-42); BLOOD GAS PO2 78 mmHg (61-120); BLOOD GAS TOTAL HGB 9.9 G/DL (12.0-16.0); CRITICAL VALUE YES; DRAW SITE RT RADIAL; FIO2 40 %; NUMBER OF ARTERIAL PUNCTURES 1; OXYGEN DEVICE VENTILATOR; STAT NO; TEMP CORR TO 98.6; ULNAR PULSE PRESENT; VENT SETTINGS AC/15/500/PEEP5
[2016-10-07] MEDS ORDERED: SODIUM BICARBONATE 8.4% INJ 50 ML ONE (13:09)
[2016-10-07] MEDS ORDERED: BISACODYL 10 MG SUPP RECTAL ONE (13:15)
[2016-10-07] MEDS ORDERED: SODIUM BICARBONATE 8.4% INJ 50 MEQ/50 ML SYR IV PUSH ONE (13:30)
[2016-10-07] MEDS: SODIUM BICARBONATE 8.4% INJ 150 MEQ in DEXTROSE 5% IN WATE 1000ML INJ 850 ML IV SCH ×2 (14:25)
[2016-10-07] MEDS: HYDROCORTISONE SOD SUCCINATE 100 MG VIAL IV SCH ×2 (15:53→18:52)
[2016-10-07] MEDS: POLYETHYLENE GLYCOL 17 GM PKG PO SCH (19:29)
[2016-10-07] MEDS: PRAVASTATIN SOD 10 MG TAB G-TUBE SCH (19:29)
[2016-10-08] VITALS (16 sets, daily range): BP systolic 96–105; BP diastolic 50–51; PULSE 59–113; RESP 15; TEMP 97.8–100.4; O2SAT 94–99
[2016-10-08] MEDS: HYDROCORTISONE SOD SUCCINATE 100 MG VIAL IV SCH ×5 (00:40→23:01)
[2016-10-08] MEDS: INSULIN NovoLIN REGULAR SUPPLEMENTAL SCALE SQ SCH ×5 (00:44→23:10)
[2016-10-08] MEDS: RESP: ALBUTEROL 2.5 MG/IPRATROPIUM 0.5 MG NEB (SCH) INH ×4 (03:11→21:13)
[2016-10-08] MEDS: VANCOMYCIN INJ 1,200 MG in SODIUM CHLOR 0.9% 250 ML INJ 250 ML IV SCH (03:48)
[2016-10-08] MEDS: CHLORHEXIDINE GLUCONATE 2 % 1 PACK (2 CLOTHS) TOP SCH (03:48)
[2016-10-08] MEDS: VASOPRESSIN INJ 40 UNITS in DEXTROSE 5% IN WATER 100ML INJ 98 ML IV SCH ×4 (05:26→23:02)
[2016-10-08] MEDS: HEPARIN SODIUM - SQ 10,000 UNITS/ML VIAL SQ SCH ×3 (05:26→20:34)
[2016-10-08 05:39] LABS: HEMATOCRIT 25.4 % (39.0-51.0); MEAN CELL VOLUME 98.4 FL (80.0-100.0); MEAN CORPUSCULAR HEMOGLOBIN 30.9 PG (27.0-34.0); MEAN CORPUSCULAR HGB CONC 31.4 % (32.0-36.0); PLATELET COUNT 273 TH/MM3 (150-450); RED BLOOD COUNT 2.58 MIL/MM3 (4.50-5.90); RED CELL DISTRIBUTION WIDTH 16.3 % (11.6-17.2); REVIEW FLAG FINAL; WHITE BLOOD COUNT 12.6 TH/MM3 (4.0-11.0)
[2016-10-08 05:52] LABS: BLOOD GAS BASE EXCESS -2.2 mmol/L (-2-2); BLOOD GAS CARBOXYHEMOGLOBIN 1.4 % (0-4); BLOOD GAS HCO3 23 mmol/L (22-26); BLOOD GAS METHEMOGLOBIN 0.9 % (0-2); BLOOD GAS O2 HGB SATURATION 89 % (90-100); BLOOD GAS OXYGEN CONTENT 11.4 Vol % (12.0-20.0); BLOOD GAS PCO2 49 mmHg (38-42); BLOOD GAS PO2 63 mmHg (61-120); TEMP CORR TO 98.6
[2016-10-08 05:54] LABS: CRITICAL VALUE YES; DRAW SITE LT RADIAL; FIO2 40 %; OXYGEN DEVICE VENTILATOR; VENT SETTINGS A/C15/500/PEEP5
[2016-10-08 05:55] LABS: NUMBER OF ARTERIAL PUNCTURES 1; STAT NO; ULNAR PULSE PRESENT
[2016-10-08 06:18] LABS: BICARBONATE 26.5 MEQ/L (21.0-32.0); MAGNESIUM 2.1 MG/DL (1.5-2.5); POTASSIUM 3.9 MEQ/L (3.5-5.1)
[2016-10-08] MEDS: POLYETHYLENE GLYCOL 17 GM PKG PO SCH ×2 (08:09→20:35)
[2016-10-08] MEDS: DOCUSATE SODIUM 50 MG/SENNA 8.6 MG TAB PO SCH ×2 (08:09→20:34)
[2016-10-08] MEDS: CHOLECALCIFEROL (VIT D3) 1000 UNIT TAB G-TUBE SCH (08:09)
[2016-10-08] MEDS: ALLOPURINOL 100 MG TAB G-TUBE SCH (08:09)
[2016-10-08] MEDS: metroNIDAZOLE 500 MG INJ 100 ML IV SCH ×3 (08:09→23:02)
[2016-10-08] MEDS: ASCORBIC ACID 500 MG TAB G-TUBE SCH (08:09)
[2016-10-08] MEDS: CHLORHEXIDINE 0.12% (ORAL KIT) 15 ML CUP MT SCH ×2 (08:09→20:35)
[2016-10-08] MEDS: PANTOPRAZOLE SODIUM 40 MG VIAL IV SCH (08:10)
[2016-10-08] MEDS: CEFEPIME INJ 1,000 MG in SODIUM CHLORIDE 0.9% INJ 100 ML IV SCH (08:10)
[2016-10-08] MEDS: SODIUM CHLORIDE 0.9% FLUSH 5 ML FLUSH IV FLUSH SCH ×2 (08:11→20:35)
[2016-10-08] MEDS: fentaNYL DRIP 250 ML IV SCH (10:41)
--- NOTE | 2016-10-08 11:21 | HHI.HCPN ---
Reason for visit a. To assist with evaluation and management of symptoms including: b. To assist medical decision maker(s) with: better understanding of current medical conditions; weighing benefits/burdens of medical treatment options; making medical treatment decisions. Subjective/Interval History INTERVAL NOTE: The patient is seen in the [facility] bed, he remains mechanically ventilated. Temp is 100.4. Blood cultures remain negative, and purulent material from his ET tube grew staph aureus. The propofol was discontinued yesterday and has been left off. The patient has appeared awake but does not track or communicate or follow commands.. His sodium is 156. . Family/friend interactions Discussion by telephone with the patient's daughter. She has driven her truck now to [place], and hopes to continue on and to [place] later today. She tells me that she has thought a lot about patient's CODE STATUS in the past 24 hours since we last talked, and she now is specifically requesting that we DO NOT RESUSCITATE him if he has an arrest; she wants us to allow a more natural if his heart stops. I have changed him to "alternate code" for now. . Advance Directives Living Will: Never completed Health Care Surrogate: Copy in medical record Durable Power of Roto Mixer Operator: Copy in medical record Advance Directive Specifics Health Care Surrogate(s): Stepdaughter Gregoria Munguia . Objective Vital Signs Date Time Temp Pulse Resp B/P Pulse Ox O2 Delivery O2 Flow Rate FiO2 10/08/16 09:24 99 40 10/08/16 06:00 71 10/08/16 04:16 95 40 10/08/16 04:00 91 10/08/16 04:00 40 10/08/16 04:00 100.4 91 15 96/50 97 10/08/16 04:00 91 10/08/16 02:00 113 10/08/16 01:01 97 40 10/08/16 00:00 59 10/08/16 00:00 97.8 60 15 105/51 97 10/08/16 00:00 40 10/08/16 00:00 60 10/07/16 22:51 98 40 10/07/16 22:00 59 10/07/16 20:00 59 10/07/16 20:00 59 10/07/16 20:00 40 10/07/16 20:00 97.3 59 15 92/53 99 1/10/17 19:37 97 40 10/07/16 18:00 59 10/07/16 16:52 98 40 10/07/16 16:00 59 10/07/16 16:00 40 10/07/16 16:00 93 10/07/16 16:00 59 24 98/51 93 10/07/16 14:00 59 10/07/16 12:00 79 10/07/16 12:00 93 10/07/16 12:00 40 10/07/16 12:00 99.0 79 15 83/51 94 10/07/16 12:00 93 10/07/16 11:37 96 40 Intake & Output 10/08/16 10/08/16 07:00 19:00 Intake Total 2323 ml Output Total 1500 ml Balance 823 ml Intake IV Total 2177 ml Tube Feeding 66 ml Tube Irrigant 80 ml Output Urine Total 1500 ml Physical Exam CONSTITUTIONAL/GENERAL: This is an elderly, frail-appearing patient, who appears distressed when stimulated. TUBES/LINES/DRAINS: Endotracheal tube, Urbina catheter, SCDs SKIN: No jaundice, rashes, or lesions. Ecchymoses on upper extremities. No wounds seen anteriorly. Skin temperature appropriate. Not diaphoretic. NECK: Trachea midline. Supple, nontender. No palpable thyroid enlargement or nodularity. CARDIOVASCULAR: Regular rate and rhythm without murmurs, gallops, or rubs. No JVD. Peripheral pulses symmetric. RESPIRATORY/CHEST: Symmetric, unlabored respirations. Diminished breath sounds , scattered rhonchi. GASTROINTESTINAL: Abdomen soft, non-tender, nondistended. No hepato-splenomegaly , or palpable masses. No guarding. Bowel sounds present. GENITOURINARY: Without palpable bladder distension. Urbina catheter in place. MUSCULOSKELETAL: Extremities without clubbing, cyanosis, or edema. No joint tenderness or effusion noted. No calf tenderness. No mottling or clubbing. NEUROLOGICAL: The patient appears awake. He raises his arms and shakes his arms and legs when he is stimulated. Does not follow commands, does not answer questions, does not track.. PSYCHIATRIC: Agitation and restlessness when stimulated .. Diagnostic Tests Laboratory Laboratory Tests Test 10/05/16 10/05/16 10/06/16 10/07/16 14:30 16:24 04:00 03:50 Nasal Screen MRSA (PCR) POSITIVE (NEGATIVE) Sodium Level 147 MEQ/L 153 MEQ/L 154 MEQ/L (136-145) (136-145) (136-145) Potassium Level 5.3 MEQ/L 4.4 MEQ/L 4.6 MEQ/L (3.5-5.1) (3.5-5.1) (3.5-5.1) Chloride Level 118 MEQ/L 121 MEQ/L 125 MEQ/L (98-107) (98-107) (98-107) Carbon Dioxide Level 20.5 MEQ/L 24.7 MEQ/L 23.1 MEQ/L (21.0-32.0) (21.0-32.0) (21.0-32.0) Anion Gap 9 MEQ/L (5-15) 7 MEQ/L (5-15) 6 MEQ/L (5-15) Blood Urea Nitrogen 56 MG/DL (7-18) 52 MG/DL (7-18) 47 MG/DL (7-18) Creatinine 2.17 MG/DL 1.98 MG/DL 2.05 MG/DL (0.60-1.30) (0.60-1.30) (0.60-1.30) Estimat Glomerular Filtration 30 ML/MIN (>89) 33 ML/MIN (>89) 32 ML/MIN (>89) Rate Random Glucose 355 MG/DL 108 MG/DL 153 MG/DL (74-106) (74-106) (74-106) Calcium Level 8.9 MG/DL 8.9 MG/DL 9.2 MG/DL (8.5-10.1) (8.5-10.1) (8.5-10.1) White Blood Count 14.0 TH/MM3 13.4 TH/MM3 (4.0-11.0) (4.0-11.0) Red Blood Count 3.15 MIL/MM3 2.72 MIL/MM3 (4.50-5.90) (4.50-5.90) Hemoglobin 9.6 GM/DL 8.6 GM/DL (13.0-17.0) (13.0-17.0) Hematocrit 31.2 % 27.3 % (39.0-51.0) (39.0-51.0) Mean Corpuscular Volume 99.1 FL 100.4 FL (80.0-100.0) (80.0-100.0) Mean Corpuscular Hemoglobin 30.5 PG 31.6 PG (27.0-34.0) (27.0-34.0) Mean Corpuscular Hemoglobin 30.8 % 31.5 % Concent (32.0-36.0) (32.0-36.0) Red Cell Distribution Width 15.8 % 16.2 % (11.6-17.2) (11.6-17.2) Platelet Count 329 TH/MM3 289 TH/MM3 (150-450) (150-450) Mean Platelet Volume 7.6 FL 8.4 FL (7.0-11.0) (7.0-11.0) Vancomycin Level Trough 13.4 MCG/ML (5.0-10.0) Test 10/07/16 10/08/16 10/08/16 10/08/16 12:28 03:47 05:39 08:25 Blood Gas Puncture Site RT RADIAL LT RADIAL Blood Gas Patient Temperature 98.6 98.6 Blood Gas HCO3 18 mmol/L 23 mmol/L (22-26) (22-26) Blood Gas Base Excess -9.2 mmol/L -2.2 mmol/L (-2-2) (-2-2) Blood Gas Oxygen Saturation 92 % (90-100) 89 % (90-100) Arterial Blood pH 7.19 7.30 (7.380-7.420) (7.380-7.420) Arterial Blood Partial 47 mmHg (38-42) 49 mmHg (38-42) Pressure CO2 Arterial Blood Partial 78 mmHg 63 mmHg Pressure O2 (61-120) (61-120) Arterial Blood Oxygen Content 13.0 Vol % 11.4 Vol % (12.0-20.0) (12.0-20.0) Arterial Blood 1.2 % (0-4) 1.4 % (0-4) Carboxyhemoglobin Arterial Blood Methemoglobin 1.1 % (0-2) 0.9 % (0-2) Blood Gas Hemoglobin 9.9 G/DL 9.0 G/DL (12.0-16.0) (12.0-16.0) Oxygen Delivery Device VENTILATOR VENTILATOR Blood Gas Ventilator Setting AC/15/500/PEEP5 A/C15/500/PEEP5 Blood Gas Inspired Oxygen 40 % 40 % White Blood Count 12.6 TH/MM3 (4.0-11.0) Red Blood Count 2.58 MIL/MM3 (4.50-5.90) Hemoglobin 8.0 GM/DL (13.0-17.0) Hematocrit 25.4 % (39.0-51.0) Mean Corpuscular Volume 98.4 FL (80.0-100.0) Mean Corpuscular Hemoglobin 30.9 PG (27.0-34.0) Mean Corpuscular Hemoglobin 31.4 % Concent (32.0-36.0) Red Cell Distribution Width 16.3 % (11.6-17.2) Platelet Count 273 TH/MM3 (150-450) Mean Platelet Volume 8.2 FL (7.0-11.0) Sodium Level 156 MEQ/L (136-145) Potassium Level 3.9 MEQ/L (3.5-5.1) Chloride Level 123 MEQ/L (98-107) Carbon Dioxide Level 26.5 MEQ/L (21.0-32.0) Anion Gap 7 MEQ/L (5-15) Blood Urea Nitrogen 45 MG/DL (7-18) Creatinine 1.98 MG/DL (0.60-1.30) Estimat Glomerular Filtration 33 ML/MIN (>89) Rate Random Glucose 193 MG/DL (74-106) Calcium Level 9.2 MG/DL (8.5-10.1) Phosphorus Level 3.0 MG/DL (2.5-4.9) Magnesium Level 2.1 MG/DL (1.5-2.5) Lactic Acid Level 1.4 mmol/L (0.4-2.0) Ammonia 14 MCMOL/L (11-32) Result Diagram: 10/08/16 0347 10/08/16 0347 Imaging Last Impressions Abdomen X-Ray 10/07/16 0000 Signed Impressions: Service Date/Time: Friday, October 07, 2016 11:42 - CONCLUSION: The PEG tube overlies the left upper quadrant in the expected region of the stomach. Gil Mcfarlane MD Chest X-Ray 10/06/16 0600 Signed Impressions: Service Date/Time: Thursday, October 06, 2016 03:08 - CONCLUSION: Diffuse bilateral airspace disease. Ananth Dozier MD Head CT 10/05/16 0000 Signed Impressions: Service Date/Time: Wednesday, October 05, 2016 09:24 - CONCLUSION: Negative for an acute process.. Eric Mcclellan MD FACR Procedures INTUBATION 10/05/16 . Assessment and Plan Disease Oriented Problem List: (1) sepsis, septic shock (2) pneumonia, probable aspiration (3) respiratory failure (4) metabolic encephalopathy (5) BPH (6) diabetes (7) anemia (8) hyperlipidemia (9) anxiety (10) Charcot joint/neuropathic osteoarthropathy (11) long history of psychiatric illness, schizophrenia, bipolar disorder (12) chronic kidney disease (13) recent admission for UTI (14) recent dysphagia, PEG tube placed to weeks prior to admission (15) depression (16) COPD Symptom Scale: (1) agitation 0-10 Scale: 5 (with any stimulation) (2) dyspnea 0-10 Scale: Unable to quantify (mechanical ventilation) Pertinent Non-Medical Issues Psychosocial: , no biologic family, close to his stepdaughter Gregoria. 100% disabled vet with significant long-term psychiatric illness. Spiritual: Stepdaughter/HCP Gregoria reports that the patient is a Taoism Religion, unaffiliated with any particular gnosticist or denomination, and that spirituality has been very important for the patient. She specifically requests that one of our chaplains see the patient each day. Legal: The patient lacks capacity for decision-making, and he will not regain that capacity. His stepdaughter Gregoria is healthcare proxy. Ethical issues impacting care: None. . Important Contacts Stepdaughter/HCP Gregoria Ezra [phone] . Prognosis The patient's prognosis is poor. He has been declining for several months, with worsening weakness and recurrent episodes of infection/sepsis. He had a PEG tube placed last month because of dysphagia, and now appears to have aspirated and has bilateral pneumonia with respiratory failure. Certainly he is a candidate and is appropriate for hospice services if the goals evolved to become comfort oriented. . Code Status: Full Code Plan * ALTERNATE CODE -- intubation only her stepdaughter/HCP Gregoria on 10/08/16. * GOALS: The patient's stepdaughter/HCP Gregoria has a good understanding of the patient's condition, acknowledges and recognizes his steady decline over the past few months, and understands his poor prognosis. She is a trucking manager, currently in the [place], but is heading this way and thinks she will be able to be here by the evening of 10/09/16. She wants aggressive care to continue short of resuscitation at least until she is able to see him again; she is driving her truck through [place] toward [place] later today. * DECISION-MAKING: The patient lacks capacity for decision-making, and he will not regain that capacity. His stepdaughter Gregoria is the durable POA and healthcare proxy. * SYMPTOMS: The patient's respiratory failure/dyspnea is being managed via mechanical ventilation. If the agitation becomes problematic, the patient may benefit from some Haldol.. * Palliative Care will continue to follow the patient during this hospitalization. . Time Spent Total Floor Time (mins): 40 Face to Face Time (mins): 24 >50% Counseling/Coord of Care: Yes (discussed with RN) Attestation To help prompt me to consider important information that might be impacting today's encounter and assessment, information from prior notes written by myself or my colleagues may have been "brought forward" into today's note. My signature on this note, however, is an attestation that I personally performed the exam, history, and/or decision-making noted today, and, unless otherwise indicated, the interactions with patient, family, and staff as well as the review of records all occurred today. I also attest that the listed assessment and stated plan reflect my best clinical judgment today based on the combination of historical information, prior notes, and today's exam/ interactions. When time spent is documented, it refers only to time spent today by the signer, or if indicated, combined time spent today by collaborating physician/nurse practitioner. Crystal Velarde MD Oct 08, 2016 11:21
[2016-10-08] MEDS: LACTATED RINGER'S 1000 ML INJ 1,000 ML IV SCH ×2 (14:41→23:02)
[2016-10-08] MEDS: SODIUM BICARBONATE 8.4% INJ 150 MEQ in DEXTROSE 5% IN WATE 1000ML INJ 850 ML IV SCH ×2 (14:42)
--- NOTE | 2016-10-08 16:45 | HHI.CCPN ---
Subjective Remarks/Hospital Course This is a 76-year-old male who presented the emergency room from a correction facility after he had an acute mental status change and was noticed to have vomited around his tracheostomy site and hypoxia. Per report, he was seen normal earlier in the morning. He is apparently somewhat confused at baseline. He has a long psychiatric history. For EMS, the patient had a GCS of 3. He was intubated in the field. In the emergency room he was hypotensive with systolics in the 60s. He was given IV fluid boluses. He was febrile to 101. He was started on empiric antibiotics. Central line was placed. He was started on norepinephrine. Critical care medicine is consult to evaluate and manage septic shock. 10/06: The patient remains at baseline, neurological status unchanged. Not following any commands, spontaneous eye opening. The patient continues on norepinephrine, MAP low 60's. Vasopressin added this a.m.. Patient continues on empiric antibiotics. Palliative medicine has been consulted, or discussion regarding goals of care. 10/07: Tmax 98.7. No change in neurological status on sedation holiday yesterday. The patient continues on norepinephrine and vasopressin for to maintain a MAP greater than 65. Pacemaker was interrogated, functioning properly. Sedation includes propofol and fentanyl for ventilator synchrony. 10/08: Propofol discontinued. The patient continues on fentanyl infusion for ventilator synchrony. Norepinephrine infusion was discontinued last night. Patient continues on vasopressin for vasopressor support. The patient was placed on a sodium bicarbonate infusion secondary to metabolic acidosis. Objective Vital Signs Date Time Temp Pulse Resp B/P Pulse Ox O2 Delivery O2 Flow Rate FiO2 10/08/16 15:39 98 40 10/08/16 06:00 71 10/08/16 04:00 100.4 15 96/50 10/05/16 12:22 Ventilator Intake and Output 10/07/16 10/07/16 10/08/16 08:00 16:00 00:00 Intake Total 2246 ml 1772 ml 1036 ml Output Total 1250 ml 925 ml 900 ml Balance 996 ml 847 ml 136 ml Result Diagram: 10/08/16 0347 10/08/16 0347 Other Results Laboratory Tests Test 10/08/16 05:39 Blood Gas Puncture Site LT RADIAL Blood Gas Patient Temperature 98.6 Blood Gas HCO3 23 mmol/L (22-26) Blood Gas Base Excess -2.2 mmol/L (-2-2) Blood Gas Oxygen Saturation 89 % (90-100) Arterial Blood pH 7.30 (7.380-7.420) Arterial Blood Partial 49 mmHg (38-42) Pressure CO2 Arterial Blood Partial 63 mmHg Pressure O2 (61-120) Arterial Blood Oxygen Content 11.4 Vol % (12.0-20.0) Arterial Blood 1.4 % (0-4) Carboxyhemoglobin Arterial Blood Methemoglobin 0.9 % (0-2) Blood Gas Hemoglobin 9.0 G/DL (12.0-16.0) Oxygen Delivery Device VENTILATOR Blood Gas Ventilator Setting A/C15/500/PEEP5 Blood Gas Inspired Oxygen 40 % Imaging Last Impressions Chest X-Ray 10/06/16 0600 Signed Impressions: Service Date/Time: Thursday, October 06, 2016 03:08 - CONCLUSION: Diffuse bilateral airspace disease. Ananth Dozier MD Head CT 10/05/16 0000 Signed Impressions: Service Date/Time: Wednesday, October 05, 2016 09:24 - CONCLUSION: Negative for an acute process.. Eric Mcclellan MD FACR Objective Remarks GENERAL: Critically ill-appearing male looking older than stated age, intubated and sedated. HEENT: Normocephalic. Atraumatic. Pupils equally round and reactive. NECK: Trachea is midline. There is no JVD. Orotracheally intubated, copious amount of secretions. CHEST: Equal chest rise. Coarse breath sounds bilaterally. Intubated. CARDIOVASCULAR: Atrial pacing noted, rate 61 regular rhythm. ABDOMEN: Soft, nontender, nondistended. No guarding. There is a PEG tube exit subxiphoid. The site is clean and dry. MUSCULOSKELETAL: Moves all extremities. Distal pulses 2+. No peripheral edema. NEUROLOGICAL: RASS -4. moves all extremities, non-purposeful. nonfocal. Rigidity and tremors Urinary Catheter: Yes Date of Insertion: Oct 05, 2016 Vascular Central Line Catheter: Yes Date of Insertion: Oct 05, 2016 Side: Right Location: Internal, Jugular A/P Assessment and Plan Assessment: This is a 76-year-old male with long psychiatric history, chronically critically ill with PEG tube placement who presents with what appears to be an aspiration-like event, septic shock, possible aspiration pneumonia. During his mental status is likely accommodation of his baseline psychiatric illness along with his septic shock. He is very critically ill. I' m very concerned given his age and multiple comorbidities, that he may not do well long-term. Palliative care following, patient has alternate CODE STATUS. His prognosis is guarded. Plan by systems: Neurologic: Bipolar disorder Schizophrenia Anxiety disorder Metabolic encephalopathy Discontinue Propofol, maintain fentanyl infusion for ventilator synchrony for goal RASS-1 Daily sedation vacation Hold antipsychotic (home med) lithium, -Carbamazepam, Geodon resumed Respiratory: Acute hypoxic respiratory failure Probable aspiration pneumonia COPD Head of bed at 30 Vent bundle Wean FiO2 for goal SPO2 greater than 90% Low tidal volume ventilation targeting 6 cc/kg ideal body weight -DuoNeb nebs every 4 hours scheduled, and every 6 hours when necessary Does not meet SBT criteria Cardiovascular: Septic shock Pacemaker-DDDR -Hyperlipidemia Maintenance fluids change to LR at 84 cc an hour 10/05 Interrogation completed, [employer] DDDR Continue vasopressin for goal MAP greater than 65mmHg - Norepinephrine weaned off Trend CVP- 6-7. Renal: Acute kidney injury BPH Metabolic acidosis Creatinine 1.98-->2.05 today Every hour urine outputs, Urbina -Sodium bicarbonate infusion -Monitor BMP -Hold home meds Finasteride,and Tamulosin -- Strict I/Os FEN/GI: Acute protein calorie malnutritionsevere Chronic dysphagia GERD Barrios's esophagus Vitamin C, D patient's Hypernatremia Free water flushes 250 cc every 6 hours - Advance G-tube feeds to goal -Resume vitamins Fluids as above Heme/ID: Possible aspiration pneumonia Septic shock Vancomycin with pharmacy dosing Cefepime 1 g every 24 hours, renal dose Flagyl 500 mg IV every 8hr -Hydrocortisone Follow-up sputum, blood, urine cultures Endocrine: Hyperglycemia of critical illness DM -Hold home meds glipizide, will consider Levemir when patient becomes stable -- SSI to every 6 hours, medium scale MSK: Gout -Begin allopurinol Prophylaxis: GI Prophylaxis Protonix 40 mg IV every 12 hours DVT Prophylaxis -- SCDs SQ heparin Lines: 10/05 right IJ triple lumen catheter 10/05, [place] Dispo: Discussed with CREATIVE ART THERAPIST at bedside. This patient remains critically ill with one or more organ systems which are or may become a threat to life. I have spent in excess of 33 minutes discontinuously in the care and management of this patient. This time is exclusive of procedures, and includes, but is not limited to, evaluation of the patient, review of the medical record, discussions with family, consultants, nursing staff, or respiratory therapy, and documentation in the medical record. Palliative care consulted, the patient has Alternate code status. Physician Estela Terry MD Oct 08, 2016 16:44
[2016-10-08] MEDS: FREE WATER G-TUBE SCH ×2 (18:00→23:02)
[2016-10-08 18:03] LABS: BLOOD GAS BASE EXCESS -1.5 mmol/L (-2-2); BLOOD GAS CARBOXYHEMOGLOBIN 1.4 % (0-4); BLOOD GAS HCO3 24 mmol/L (22-26); BLOOD GAS METHEMOGLOBIN 1.3 % (0-2); BLOOD GAS O2 HGB SATURATION 92 % (90-100); BLOOD GAS OXYGEN CONTENT 10.5 Vol % (12.0-20.0); BLOOD GAS PCO2 49 mmHg (38-42); BLOOD GAS PO2 73 mmHg (61-120); BLOOD GAS TOTAL HGB 8.1 G/DL (12.0-16.0); TEMP CORR TO 98.6
[2016-10-08 18:04] LABS: CRITICAL VALUE NO; DRAW SITE RT RADIAL; FIO2 40 %; OXYGEN DEVICE VENTILATOR; VENT SETTINGS VT500/AC15/5PEEP
[2016-10-08 18:05] LABS: NUMBER OF ARTERIAL PUNCTURES 1; STAT NO; ULNAR PULSE PRESENT
[2016-10-08] MEDS: PRAVASTATIN SOD 10 MG TAB G-TUBE SCH (20:35)
[2016-10-08] MEDS: ZIPRASIDONE HCL 80 MG CAP GT SCH (20:55)
[2016-10-09] VITALS (18 sets, daily range): BP systolic 107–145; BP diastolic 54–68; PULSE 59–112; RESP 15–17; TEMP 98.1–99.5; O2SAT 93–100
[2016-10-09 03:36] LABS: HEMATOCRIT 25.3 % (39.0-51.0); MEAN CORPUSCULAR HEMOGLOBIN 29.6 PG (27.0-34.0); MEAN CORPUSCULAR HGB CONC 30.6 % (32.0-36.0); PLATELET COUNT 254 TH/MM3 (150-450); RED BLOOD COUNT 2.61 MIL/MM3 (4.50-5.90); RED CELL DISTRIBUTION WIDTH 15.5 % (11.6-17.2); REVIEW FLAG FINAL; WHITE BLOOD COUNT 11.2 TH/MM3 (4.0-11.0)
[2016-10-09 03:37] LABS: MAGNESIUM 2.1 MG/DL (1.5-2.5); POTASSIUM 3.9 MEQ/L (3.5-5.1); VANCOMYCIN TROUGH 23.5 MCG/ML (5.0-10.0)
[2016-10-09] MEDS ORDERED: PHARMACY ORDERED LAB XX ONE (03:45)
[2016-10-09] MEDS: CHLORHEXIDINE GLUCONATE 2 % 1 PACK (2 CLOTHS) TOP SCH (04:00)
[2016-10-09] MEDS: VANCOMYCIN INJ 1,200 MG in SODIUM CHLOR 0.9% 250 ML INJ 250 ML IV SCH ×2 (04:00→05:26)
[2016-10-09] MEDS: RESP: ALBUTEROL 2.5 MG/IPRATROPIUM 0.5 MG NEB (SCH) INH ×3 (04:25→15:33)
[2016-10-09] MEDS: HYDROCORTISONE SOD SUCCINATE 100 MG VIAL IV SCH ×4 (05:26→23:05)
[2016-10-09] MEDS: metroNIDAZOLE 500 MG INJ 100 ML IV SCH ×4 (05:26→23:12)
[2016-10-09] MEDS: HEPARIN SODIUM - SQ 10,000 UNITS/ML VIAL SQ SCH ×3 (05:27→20:46)
[2016-10-09] MEDS: FREE WATER G-TUBE SCH ×4 (05:27→23:12)
[2016-10-09] MEDS: fentaNYL DRIP 250 ML IV SCH ×3 (05:30→23:07)
[2016-10-09] MEDS: INSULIN NovoLIN REGULAR SUPPLEMENTAL SCALE SQ SCH ×4 (05:49→23:06)
[2016-10-09 06:05] LABS: BLOOD GAS BASE EXCESS -1.7 mmol/L (-2-2); BLOOD GAS CARBOXYHEMOGLOBIN 1.4 % (0-4); BLOOD GAS HCO3 23 mmol/L (22-26); BLOOD GAS O2 HGB SATURATION 89 % (90-100); BLOOD GAS PCO2 44 mmHg (38-42); BLOOD GAS PO2 63 mmHg (61-120); BLOOD GAS TOTAL HGB 8.8 G/DL (12.0-16.0); CRITICAL VALUE YES; OXYGEN DEVICE VENTILATOR; TEMP CORR TO 98.6
[2016-10-09 06:06] LABS: DRAW SITE LT BRACHIAL; FIO2 40 %; NUMBER OF ARTERIAL PUNCTURES 1; STAT NO; ULNAR PULSE PRESENT; VENT SETTINGS A/C 15/500/PEEP5
[2016-10-09] MEDS: CHLORHEXIDINE 0.12% (ORAL KIT) 15 ML CUP MT SCH ×2 (08:00→23:13)
[2016-10-09] MEDS: ZIPRASIDONE HCL 80 MG CAP GT SCH ×2 (08:24→20:45)
[2016-10-09] MEDS: ASCORBIC ACID 500 MG TAB G-TUBE SCH (08:24)
[2016-10-09] MEDS: CHOLECALCIFEROL (VIT D3) 1000 UNIT TAB G-TUBE SCH (08:24)
[2016-10-09] MEDS: ALLOPURINOL 100 MG TAB G-TUBE SCH (08:25)
[2016-10-09] MEDS: CEFEPIME INJ 1,000 MG in SODIUM CHLORIDE 0.9% INJ 100 ML IV SCH (08:25)
[2016-10-09] MEDS: DOCUSATE SODIUM 50 MG/SENNA 8.6 MG TAB PO SCH ×2 (08:25→20:45)
[2016-10-09] MEDS: POLYETHYLENE GLYCOL 17 GM PKG PO SCH ×2 (08:25→20:45)
[2016-10-09] MEDS: PANTOPRAZOLE SODIUM 40 MG VIAL IV SCH (08:26)
[2016-10-09] MEDS: SODIUM CHLORIDE 0.9% FLUSH 5 ML FLUSH IV FLUSH SCH ×2 (08:26→20:45)
--- NOTE | 2016-10-09 12:18 | EKG ---
Date Performed: 10/09/2016 Time Performed: 03:41:44 PTAGE: 76 years EK% atrial pacing at 60 pbm Low voltage throughout Compared to previous tracing, no longer has inappropriate pacer spikes. Abnormal ECG PREVIOUS TRACING : 10/09/2016 03.39 DOCTOR: Giorgio Hernandez Interpretating Date/Time 10/09/2016 12:17:20
--- NOTE | 2016-10-09 15:05 | HHI.HCPN ---
Reason for visit a. To assist with evaluation and management of symptoms including: b. To assist medical decision maker(s) with: better understanding of current medical conditions; weighing benefits/burdens of medical treatment options; making medical treatment decisions. Subjective/Interval History INTERVAL NOTE: The patient is seen in the [facility] bed, he remains mechanically ventilated. He is off of pressors now, remains on fentanyl, and Geodon was started on him last night. He continues to have episodes of agitation when he is stimulated. The propofol has been left off for 2 days. The patient has appeared awake but does not track or communicate or follow commands.. His sodium is now 159. White count 11.2, hemoglobin 7.7. . Family/friend interactions Discussion by telephone with stepdaughter Gregoria. She has returned to [place] and will likely be here late tonight but come to visit him tomorrow morning. We reviewed his decline over the last several months, his multiple hospitalizations , and the minimal chance that he will be able to recover from his current medical problems. She says she does not believe he would want to be kept alive artificially. . Advance Directives Living Will: Never completed Health Care Surrogate: Copy in medical record Durable Power of Stained Glass Painter: Copy in medical record Advance Directive Specifics Health Care Surrogate(s): Stepdamoreno Munguia . Objective Vital Signs Date Time Temp Pulse Resp B/P Pulse Ox O2 Delivery O2 Flow Rate FiO2 10/09/16 12:00 98.5 59 16 145/65 93 10/09/16 12:00 59 10/09/16 12:00 59 10/09/16 12:00 40 10/09/16 11:50 95 40 10/09/16 10:02 93 40 10/09/16 10:00 92 10/09/16 08:00 98.1 107 17 107/54 98 10/09/16 08:00 107 10/09/16 08:00 40 10/09/16 08:00 107 10/09/16 06:00 60 10/09/16 04:25 95 40 10/09/16 04:00 40 10/09/16 04:00 97 10/09/16 04:00 99.2 97 15 122/65 96 10/09/16 04:00 10/09/16 02:00 59 10/09/16 01:19 100 40 10/09/16 00:00 10/09/16 00:00 60 10/09/16 00:00 40 10/09/16 00:00 99.0 60 15 111/57 100 10/08/16 22:10 99 40 10/08/16 22:00 59 10/08/16 20:00 10/08/16 20:00 110 10/08/16 20:00 40 10/08/16 19:35 94 40 10/08/16 16:00 40 10/08/16 16:00 93 10/08/16 15:39 98 40 Intake & Output 10/09/16 10/09/16 07:00 19:00 Intake Total 3480 ml Output Total 2400 ml Balance 1080 ml Intake Oral 0 ml IV Total 2460 ml Tube Feeding 520 ml Other 500 ml Output Urine Total 2400 ml # Bowel Movements 0 Physical Exam CONSTITUTIONAL/GENERAL: This is an elderly, frail-appearing patient, who appears distressed/agitated when stimulated. TUBES/LINES/DRAINS: Endotracheal tube, Urbina catheter, SCDs NECK: Trachea midline. Supple, nontender. No palpable thyroid enlargement or nodularity. CARDIOVASCULAR: Regular rate and rhythm without murmurs, gallops, or rubs. No JVD. Peripheral pulses symmetric. RESPIRATORY/CHEST: Symmetric, unlabored respirations. Diminished breath sounds , scattered rhonchi. GASTROINTESTINAL: Abdomen soft, non-tender, nondistended. No hepato-splenomegaly , or palpable masses. No guarding. Bowel sounds present. GENITOURINARY: Without palpable bladder distension. Urbina catheter in place. MUSCULOSKELETAL: Extremities without clubbing, cyanosis, or edema. No joint tenderness or effusion noted. No calf tenderness. No mottling or clubbing. NEUROLOGICAL: The patient appears awake. He raises his arms and shakes his arms and legs when he is stimulated. Does not follow commands, does not answer questions, does not track.. PSYCHIATRIC: Agitation and restlessness when stimulated .. Diagnostic Tests Laboratory Laboratory Tests Test 10/07/16 10/07/16 10/08/16 10/08/16 03:50 12:28 03:47 05:39 White Blood Count 13.4 TH/MM3 12.6 TH/MM3 (4.0-11.0) (4.0-11.0) Red Blood Count 2.72 MIL/MM3 2.58 MIL/MM3 (4.50-5.90) (4.50-5.90) Hemoglobin 8.6 GM/DL 8.0 GM/DL (13.0-17.0) (13.0-17.0) Hematocrit 27.3 % 25.4 % (39.0-51.0) (39.0-51.0) Mean Corpuscular Volume 100.4 FL 98.4 FL (80.0-100.0) (80.0-100.0) Mean Corpuscular Hemoglobin 31.6 PG 30.9 PG (27.0-34.0) (27.0-34.0) Mean Corpuscular Hemoglobin 31.5 % 31.4 % Concent (32.0-36.0) (32.0-36.0) Red Cell Distribution Width 16.2 % 16.3 % (11.6-17.2) (11.6-17.2) Platelet Count 289 TH/MM3 273 TH/MM3 (150-450) (150-450) Mean Platelet Volume 8.4 FL 8.2 FL (7.0-11.0) (7.0-11.0) Sodium Level 154 MEQ/L 156 MEQ/L (136-145) (136-145) Potassium Level 4.6 MEQ/L 3.9 MEQ/L (3.5-5.1) (3.5-5.1) Chloride Level 125 MEQ/L 123 MEQ/L (98-107) (98-107) Carbon Dioxide Level 23.1 MEQ/L 26.5 MEQ/L (21.0-32.0) (21.0-32.0) Anion Gap 6 MEQ/L (5-15) 7 MEQ/L (5-15) Blood Urea Nitrogen 47 MG/DL (7-18) 45 MG/DL (7-18) Creatinine 2.05 MG/DL 1.98 MG/DL (0.60-1.30) (0.60-1.30) Estimat Glomerular Filtration 32 ML/MIN (>89) 33 ML/MIN (>89) Rate Random Glucose 153 MG/DL 193 MG/DL (74-106) (74-106) Calcium Level 9.2 MG/DL 9.2 MG/DL (8.5-10.1) (8.5-10.1) Vancomycin Level Trough 13.4 MCG/ML (5.0-10.0) Blood Gas Puncture Site RT RADIAL LT RADIAL Blood Gas Patient Temperature 98.6 98.6 Blood Gas HCO3 18 mmol/L 23 mmol/L (22-26) (22-26) Blood Gas Base Excess -9.2 mmol/L -2.2 mmol/L (-2-2) (-2-2) Blood Gas Oxygen Saturation 92 % (90-100) 89 % (90-100) Arterial Blood pH 7.19 7.30 (7.380-7.420) (7.380-7.420) Arterial Blood Partial 47 mmHg (38-42) 49 mmHg (38-42) Pressure CO2 Arterial Blood Partial 78 mmHg 63 mmHg Pressure O2 (61-120) (61-120) Arterial Blood Oxygen Content 13.0 Vol % 11.4 Vol % (12.0-20.0) (12.0-20.0) Arterial Blood 1.2 % (0-4) 1.4 % (0-4) Carboxyhemoglobin Arterial Blood Methemoglobin 1.1 % (0-2) 0.9 % (0-2) Blood Gas Hemoglobin 9.9 G/DL 9.0 G/DL (12.0-16.0) (12.0-16.0) Oxygen Delivery Device VENTILATOR VENTILATOR Blood Gas Ventilator Setting AC/15/500/PEEP5 A/C15/500/PEEP5 Blood Gas Inspired Oxygen 40 % 40 % Phosphorus Level 3.0 MG/DL (2.5-4.9) Magnesium Level 2.1 MG/DL (1.5-2.5) Test 10/08/16 10/08/16 10/08/16 10/09/16 08:25 17:50 21:00 03:00 Lactic Acid Level 1.4 mmol/L 1.0 mmol/L (0.4-2.0) (0.4-2.0) Ammonia 14 MCMOL/L 11 MCMOL/L (11-32) (11-32) Blood Gas Puncture Site RT RADIAL Blood Gas Patient Temperature 98.6 Blood Gas HCO3 24 mmol/L (22-26) Blood Gas Base Excess -1.5 mmol/L (-2-2) Blood Gas Oxygen Saturation 92 % (90-100) Arterial Blood pH 7.31 (7.380-7.420) Arterial Blood Partial 49 mmHg (38-42) Pressure CO2 Arterial Blood Partial 73 mmHg Pressure O2 (61-120) Arterial Blood Oxygen Content 10.5 Vol % (12.0-20.0) Arterial Blood 1.4 % (0-4) Carboxyhemoglobin Arterial Blood Methemoglobin 1.3 % (0-2) Blood Gas Hemoglobin 8.1 G/DL (12.0-16.0) Oxygen Delivery Device VENTILATOR Blood Gas Ventilator Setting VT500/AC15/5PEEP Blood Gas Inspired Oxygen 40 % White Blood Count 11.2 TH/MM3 (4.0-11.0) Red Blood Count 2.61 MIL/MM3 (4.50-5.90) Hemoglobin 7.7 GM/DL (13.0-17.0) Hematocrit 25.3 % (39.0-51.0) Mean Corpuscular Volume 97.0 FL (80.0-100.0) Mean Corpuscular Hemoglobin 29.6 PG (27.0-34.0) Mean Corpuscular Hemoglobin 30.6 % Concent (32.0-36.0) Red Cell Distribution Width 15.5 % (11.6-17.2) Platelet Count 254 TH/MM3 (150-450) Mean Platelet Volume 7.7 FL (7.0-11.0) Sodium Level 159 MEQ/L (136-145) Potassium Level 3.9 MEQ/L (3.5-5.1) Chloride Level 124 MEQ/L (98-107) Carbon Dioxide Level 31.0 MEQ/L (21.0-32.0) Anion Gap 4 MEQ/L (5-15) Blood Urea Nitrogen 43 MG/DL (7-18) Creatinine 2.02 MG/DL (0.60-1.30) Estimat Glomerular Filtration 32 ML/MIN (>89) Rate Random Glucose 203 MG/DL (74-106) Calcium Level 9.4 MG/DL (8.5-10.1) Phosphorus Level 2.1 MG/DL (2.5-4.9) Magnesium Level 2.1 MG/DL (1.5-2.5) Vancomycin Level Trough 23.5 MCG/ML (5.0-10.0) Test 10/09/16 05:54 Blood Gas Puncture Site LT BRACHIAL Blood Gas Patient Temperature 98.6 Blood Gas HCO3 23 mmol/L (22-26) Blood Gas Base Excess -1.7 mmol/L (-2-2) Blood Gas Oxygen Saturation 89 % (90-100) Arterial Blood pH 7.34 (7.380-7.420) Arterial Blood Partial 44 mmHg (38-42) Pressure CO2 Arterial Blood Partial 63 mmHg Pressure O2 (61-120) Arterial Blood Oxygen Content 11.0 Vol % (12.0-20.0) Arterial Blood 1.4 % (0-4) Carboxyhemoglobin Arterial Blood Methemoglobin 1.0 % (0-2) Blood Gas Hemoglobin 8.8 G/DL (12.0-16.0) Oxygen Delivery Device VENTILATOR Blood Gas Ventilator Setting A/C 15/500/PEEP5 Blood Gas Inspired Oxygen 40 % Result Diagram: 10/09/160 10/09/16299 Procedures INTUBATION 10/05/16 . Assessment and Plan Disease Oriented Problem List: (1) sepsis, septic shock (2) pneumonia, probable aspiration (3) respiratory failure (4) metabolic encephalopathy (5) BPH (6) diabetes (7) anemia (8) hyperlipidemia (9) anxiety (10) Charcot joint/neuropathic osteoarthropathy (11) long history of psychiatric illness, schizophrenia, bipolar disorder (12) chronic kidney disease (13) recent admission for UTI (14) recent dysphagia, PEG tube placed to weeks prior to admission (15) depression (16) COPD Symptom Scale: (1) agitation 0-10 Scale: 5 (with any stimulation) (2) dyspnea 0-10 Scale: Unable to quantify (mechanical ventilation) Pertinent Non-Medical Issues Psychosocial: , no biologic family, close to his stepdaughter Gregoria. 100% disabled vet with significant long-term psychiatric illness. Spiritual: Stepdaughter/HCP Gregoria reports that the patient is a S[employer], unaffiliated with any particular confucianist or denomination, and that spirituality has been very important for the patient. She specifically requests that one of our chaplains see the patient each day. Legal: The patient lacks capacity for decision-making, and he will not regain that capacity. His stepdaughter Gregoria is healthcare proxy. Ethical issues impacting care: None. . Important Contacts Stepdaughter/HCP Gregoria Munguia [phone] . Prognosis The patient's prognosis is poor. He has been declining for several months, with worsening weakness and recurrent episodes of infection/sepsis. He had a PEG tube placed last month because of dysphagia, and now appears to have aspirated and has bilateral pneumonia with respiratory failure. Certainly he is a candidate and is appropriate for hospice services if the goals evolved to become comfort oriented. . Code Status: Full Code Plan * ALTERNATE CODE -- intubation only her stepdaughter/HCP Gregoria on 10/08/16. * GOALS: The patient's stepdaughter/HCP Gregoria has a good understanding of the patient's condition, acknowledges and recognizes his steady decline over the past few months, and understands his poor prognosis. She is a truck headlight assembler, currently reentering [place], and expects that she will be able to be here by the electromedical service engineer on 10/10/16. She wants aggressive care to continue short of resuscitation at least until she is able to see him again; she feels that the patient would not want to be kept alive artificially, and may consider withdrawal in the upcoming days.. * DECISION-MAKING: The patient lacks capacity for decision-making, and he will not regain that capacity. His stepdaughter Gregoria is the durable POA and healthcare proxy. * SYMPTOMS: The patient's respiratory failure/dyspnea is being managed via mechanical ventilation. He continues to have some agitation at times; he is now on some Geodon. * Palliative Care will continue to follow the patient during this hospitalization. . Time Spent Total Floor Time (mins): 39 Face to Face Time (mins): 21 >50% Counseling/Coord of Care: Yes (d/w RN) Attestation To help prompt me to consider important information that might be impacting today's encounter and assessment, information from prior notes written by myself or my colleagues may have been "brought forward" into today's note. My signature on this note, however, is an attestation that I personally performed the exam, history, and/or decision-making noted today, and, unless otherwise indicated, the interactions with patient, family, and staff as well as the review of records all occurred today. I also attest that the listed assessment and stated plan reflect my best clinical judgment today based on the combination of historical information, prior notes, and today's exam/ interactions. When time spent is documented, it refers only to time spent today by the signer, or if indicated, combined time spent today by collaborating physician/nurse practitioner. Crystal Velarde MD Oct 09, 2016 15:05
[2016-10-09] MEDS: SODIUM BICARBONATE 8.4% INJ 150 MEQ in DEXTROSE 5% IN WATE 1000ML INJ 850 ML IV SCH ×4 (17:00→20:47)
--- NOTE | 2016-10-09 17:06 | HHI.CCPN ---
Subjective Remarks/Hospital Course This is a 76-year-old male who presented the emergency room from a half-way facility after he had an acute mental status change and was noticed to have vomited around his tracheostomy site and hypoxia. Per report, he was seen normal earlier in the morning. He is apparently somewhat confused at baseline. He has a long psychiatric history. For EMS, the patient had a GCS of 3. He was intubated in the field. In the emergency room he was hypotensive with systolics in the 60s. He was given IV fluid boluses. He was febrile to 101. He was started on empiric antibiotics. Central line was placed. He was started on norepinephrine. Critical care medicine is consult to evaluate and manage septic shock. 10/06: The patient remains at baseline, neurological status unchanged. Not following any commands, spontaneous eye opening. The patient continues on norepinephrine, MAP low 60's. Vasopressin added this a.m.. Patient continues on empiric antibiotics. Palliative medicine has been consulted, or discussion regarding goals of care. 10/07: Tmax 98.7. No change in neurological status on sedation holiday yesterday. The patient continues on norepinephrine and vasopressin for to maintain a MAP greater than 65. Pacemaker was interrogated, functioning properly. Sedation includes propofol and fentanyl for ventilator synchrony. 10/08: Propofol discontinued. The patient continues on fentanyl infusion for ventilator synchrony. Norepinephrine infusion was discontinued last night. Patient continues on vasopressin for vasopressor support. The patient was placed on a sodium bicarbonate infusion secondary to metabolic acidosis. 10/09: No acute issues overnight. Patient continues on a sodium bicarbonate infusion, ABGs improved. Objective Vital Signs Date Time Temp Pulse Resp B/P Pulse Ox O2 Delivery O2 Flow Rate FiO2 10/09/16 15:36 99 40 10/09/16 12:00 98.5 59 16 145/65 10/05/16 12:22 Ventilator Intake and Output 10/08/16 10/08/16 10/09/16 08:00 16:00 00:00 Intake Total 1287 ml 1780 ml 1540 ml Output Total 600 ml 850 ml 1000 ml Balance 687 ml 930 ml 540 ml Result Diagram: 10/09/16 0300 10/09/16 0300 Other Results Laboratory Tests Test 10/08/16 10/09/16 17:50 05:54 Blood Gas Puncture Site RT RADIAL LT BRACHIAL Blood Gas Patient Temperature 98.6 98.6 Blood Gas HCO3 24 mmol/L 23 mmol/L (22-26) (22-26) Blood Gas Base Excess -1.5 mmol/L -1.7 mmol/L (-2-2) (-2-2) Blood Gas Oxygen Saturation 92 % (90-100) 89 % (90-100) Arterial Blood pH 7.31 7.34 (7.380-7.420) (7.380-7.420) Arterial Blood Partial 49 mmHg (38-42) 44 mmHg (38-42) Pressure CO2 Arterial Blood Partial 73 mmHg 63 mmHg Pressure O2 (61-120) (61-120) Arterial Blood Oxygen Content 10.5 Vol % 11.0 Vol % (12.0-20.0) (12.0-20.0) Arterial Blood 1.4 % (0-4) 1.4 % (0-4) Carboxyhemoglobin Arterial Blood Methemoglobin 1.3 % (0-2) 1.0 % (0-2) Blood Gas Hemoglobin 8.1 G/DL 8.8 G/DL (12.0-16.0) (12.0-16.0) Oxygen Delivery Device VENTILATOR VENTILATOR Blood Gas Ventilator Setting VT500/AC15/5PEEP A/C 15/500/PEEP5 Blood Gas Inspired Oxygen 40 % 40 % Imaging Last Impressions Chest X-Ray 10/06/16 0600 Signed Impressions: Service Date/Time: Thursday, October 06, 2016 03:08 - CONCLUSION: Diffuse bilateral airspace disease. Ananth Dozier MD Head CT 10/05/16 0000 Signed Impressions: Service Date/Time: Wednesday, October 05, 2016 09:24 - CONCLUSION: Negative for an acute process.. Eric Mcclellan MD FACR Objective Remarks GENERAL: Critically ill-appearing male looking older than stated age, intubated and sedated. HEENT: Normocephalic. Atraumatic. Pupils equally round and reactive. NECK: Trachea is midline. There is no JVD. Orotracheally intubated, copious amount of secretions. CHEST: Equal chest rise. Coarse breath sounds bilaterally. Intubated. CARDIOVASCULAR: Atrial pacing noted, rate 61 regular rhythm. ABDOMEN: Soft, nontender, nondistended. No guarding. There is a PEG tube exit subxiphoid. The site is clean and dry. MUSCULOSKELETAL: Moves all extremities. Distal pulses 2+. No peripheral edema. NEUROLOGICAL: RASS -4. moves all extremities, non-purposeful. nonfocal. Rigidity and tremors Date of Insertion: Oct 05, 2016 Date of Insertion: Oct 05, 2016 Side: Right Location: Internal, Jugular A/P Assessment and Plan Assessment: This is a 76-year-old male with long psychiatric history, chronically critically ill with PEG tube placement who presents with what appears to be an aspiration-like event, septic shock, possible aspiration pneumonia. During his mental status is likely accommodation of his baseline psychiatric illness along with his septic shock. He is very critically ill. I' m very concerned given his age and multiple comorbidities, that he may not do well long-term. Palliative care following, patient has alternate CODE STATUS. His prognosis is guarded. Plan by systems: Neurologic: Bipolar disorder Schizophrenia Anxiety disorder Metabolic encephalopathy Discontinue Propofol, maintain fentanyl infusion for ventilator synchrony for goal RASS-1 Daily sedation vacation Hold antipsychotic (home med) lithium, -Carbamazepam, Geodon continued Respiratory: Acute hypoxic respiratory failure Probable aspiration pneumonia COPD Head of bed at 30 Vent bundle Wean FiO2 for goal SPO2 greater than 90% Low tidal volume ventilation targeting 6 cc/kg ideal body weight -DuoNeb nebs every 4 hours scheduled, and every 6 hours when necessary Does not meet SBT criteria Cardiovascular: Septic shock Pacemaker-DDDR -Hyperlipidemia Maintenance fluids change to LR at 84 cc an hour 10/05 Interrogation completed, [employer] DDDR Continue vasopressin for goal MAP greater than 65mmHg - Norepinephrine weaned off Trend CVP- 6-7. Renal: Acute kidney injury BPH Metabolic acidosis Creatinine 1.98-->2.05 today Every hour urine outputs, [place] -Sodium bicarbonate infusion -Monitor BMP -Hold home meds Finasteride,and Tamulosin -- Strict I/Os FEN/GI: Acute protein calorie malnutritionsevere Chronic dysphagia GERD Barrios's esophagus Vitamin C, D patient's Hypernatremia Free water flushes 250 cc every 6 hours - Advance G-tube feeds to goal -Resume vitamins Fluids as above Heme/ID: Possible aspiration pneumonia Septic shock Vancomycin with pharmacy dosing Cefepime 1 g every 24 hours, renal dose Flagyl 500 mg IV every 8hr -Hydrocortisone Follow-up sputum, blood, urine cultures Endocrine: Hyperglycemia of critical illness DM -Hold home meds glipizide, will consider Levemir when patient becomes stable -- SSI to every 6 hours, medium scale MSK: Gout -Begin allopurinol Prophylaxis: GI Prophylaxis Protonix 40 mg IV every 12 hours DVT Prophylaxis -- SCDs SQ heparin Lines: 10/05 right IJ triple lumen catheter 10/05, [place] Dispo: Discussed with MOLDER PUNCH at bedside. This patient remains critically ill with one or more organ systems which are or may become a threat to life. I have spent in excess of 31 minutes discontinuously in the care and management of this patient. This time is exclusive of procedures, and includes, but is not limited to, evaluation of the patient, review of the medical record, discussions with family, consultants, nursing staff, or respiratory therapy, and documentation in the medical record. Palliative care consulted, the patient has Alternate code status. Physician Estela Terry MD Oct 09, 2016 17:05
[2016-10-09] MEDS: LACTATED RINGER'S 1000 ML INJ 1,000 ML IV SCH ×2 (18:00→20:47)
[2016-10-09] MEDS: PRAVASTATIN SOD 10 MG TAB G-TUBE SCH (20:46)
[2016-10-09] MEDS: VASOPRESSIN INJ 40 UNITS in DEXTROSE 5% IN WATER 100ML INJ 98 ML IV SCH ×2 (23:14)
[2016-10-10] VITALS (10 sets, daily range): BP systolic 107–156; BP diastolic 55–85; PULSE 59–95; RESP 15–30; TEMP 98.4–98.5; O2SAT 92–97
[2016-10-10] MEDS: CHLORHEXIDINE GLUCONATE 2 % 1 PACK (2 CLOTHS) TOP SCH (04:00)
[2016-10-10 04:42] LABS: HEMATOCRIT 27.9 % (39.0-51.0); MEAN CELL VOLUME 96.9 FL (80.0-100.0); MEAN CORPUSCULAR HEMOGLOBIN 29.8 PG (27.0-34.0); MEAN CORPUSCULAR HGB CONC 30.8 % (32.0-36.0); PLATELET COUNT 269 TH/MM3 (150-450); RED BLOOD COUNT 2.88 MIL/MM3 (4.50-5.90); RED CELL DISTRIBUTION WIDTH 15.8 % (11.6-17.2); REVIEW FLAG FINAL; WHITE BLOOD COUNT 11.8 TH/MM3 (4.0-11.0)
[2016-10-10 05:17] LABS: BICARBONATE 32.2 MEQ/L (21.0-32.0); POTASSIUM 3.2 MEQ/L (3.5-5.1)
[2016-10-10] MEDS: FREE WATER G-TUBE SCH (06:00)
[2016-10-10] MEDS: INSULIN NovoLIN REGULAR SUPPLEMENTAL SCALE SQ SCH (06:00)
[2016-10-10] MEDS: HYDROCORTISONE SOD SUCCINATE 100 MG VIAL IV SCH (06:31)
[2016-10-10] MEDS: HEPARIN SODIUM - SQ 10,000 UNITS/ML VIAL SQ SCH (06:31)
[2016-10-10] MEDS: metroNIDAZOLE 500 MG INJ 100 ML IV SCH (06:31)
[2016-10-10] MEDS ORDERED: DEXTROSE 50% IN WATER 50 ML VIAL(D50) IV PUSH PRN (07:15)
--- NOTE | 2016-10-10 07:28 | HHI.CCPN ---
Subjective Remarks/Hospital Course This is a 76-year-old male who presented the emergency room from a half-way facility after he had an acute mental status change and was noticed to have vomited and have emesis around his mouth and was hypoxic. Per report, he was seen normal earlier in the morning. He is apparently somewhat confused at baseline. He has a long psychiatric history. For EMS, the patient had a GCS of 3. He was intubated in the field. In the emergency room he was hypotensive with systolics in the 60s. He was given IV fluid boluses. He was febrile to 101. He was started on empiric antibiotics. Central line was placed. He was started on norepinephrine. Critical care medicine is consult to evaluate and manage septic shock. 10/06: The patient remains at baseline, neurological status unchanged. Not following any commands, spontaneous eye opening. The patient continues on norepinephrine, MAP low 60's. Vasopressin added this a.m.. Patient continues on empiric antibiotics. Palliative medicine has been consulted, or discussion regarding goals of care. 10/07: Tmax 98.7. No change in neurological status on sedation holiday yesterday. The patient continues on norepinephrine and vasopressin for to maintain a MAP greater than 65. Pacemaker was interrogated, functioning properly. Sedation includes propofol and fentanyl for ventilator synchrony. 10/08: Propofol discontinued. The patient continues on fentanyl infusion for ventilator synchrony. Norepinephrine infusion was discontinued last night. Patient continues on vasopressin for vasopressor support. The patient was placed on a sodium bicarbonate infusion secondary to metabolic acidosis. 10/09: No acute issues overnight. Patient continues on a sodium bicarbonate infusion, ABGs improved. 10/10: off vasopressors. serum bicarb rise to 32 this AM. significantly hypernatremic and hypokalemic. appears awake this morning, but not following commands. eyes open. uop improving. Objective Vital Signs Date Time Temp Pulse Resp B/P Pulse Ox O2 Delivery O2 Flow Rate FiO2 10/10/16 06:00 60 10/10/16 04:03 97 40 10/10/16 04:00 98.5 30 143/69 Intake and Output 10/09/16 10/09/16 10/10/16 08:00 16:00 00:00 Intake Total 1940 ml 2701 ml 950 ml Output Total 1400 ml 1850 ml 550 ml Balance 540 ml 851 ml 400 ml Result Diagram: 10/10/16 0330 10/10/16 0330 Imaging Last Impressions Chest X-Ray 10/06/16 0600 Signed Impressions: Service Date/Time: Thursday, October 06, 2016 03:08 - CONCLUSION: Diffuse bilateral airspace disease. Ananth Dozier MD Head CT 10/05/16 0000 Signed Impressions: Service Date/Time: Wednesday, October 05, 2016 09:24 - CONCLUSION: Negative for an acute process.. Eric Mcclellan MD FACR Objective Remarks GENERAL: Critically ill-appearing male looking older than stated age, intubated and sedated. HEENT: Normocephalic. Atraumatic. Pupils equally round and reactive. NECK: Trachea is midline. There is no JVD. Orotracheally intubated, copious amount of secretions. CHEST: Equal chest rise. Coarse breath sounds bilaterally. Intubated. CARDIOVASCULAR: Atrial pacing noted, rate 60 regular rhythm. ABDOMEN: Soft, nontender, nondistended. No guarding. There is a PEG tube exit subxiphoid. The site is clean and dry. MUSCULOSKELETAL: Moves all extremities. Distal pulses 2+. No peripheral edema. NEUROLOGICAL: RASS -1. moves all extremities, non-purposeful. nonfocal. Rigidity and tremors. does not follow commands. Date of Insertion: Oct 05, 2016 Date of Insertion: Oct 05, 2016 Side: Right Location: Internal, Jugular A/P Assessment and Plan Assessment: This is a 76-year-old male with long psychiatric history, chronically critically ill with PEG tube placement who presents with what appears to be an aspiration-like event, septic shock, possible aspiration pneumonia. During his mental status is likely accommodation of his baseline psychiatric illness along with his septic shock. He is very critically ill. I' m very concerned given his age and multiple comorbidities, that he may not do well long-term. Palliative care following, patient has alternate CODE STATUS. His prognosis is guarded. Plan by systems: Neurologic: Bipolar disorder Schizophrenia Anxiety disorder Metabolic encephalopathy Fentanyl infusion for ventilator synchrony for goal RASS-1 Daily sedation vacation Hold antipsychotic (home med) lithium, -Carbamazepam, Geodon continued Respiratory: Acute hypoxic respiratory failure Probable aspiration pneumonia COPD Head of bed at 30 Vent bundle Wean FiO2 for goal SPO2 greater than 90% Low tidal volume ventilation targeting 6 cc/kg ideal body weight -DuoNeb nebs every 4 hours scheduled, and every 6 hours when necessary will attempt SBT today. Cardiovascular: Septic shock- resolving. Pacemaker-DDDR -Hyperlipidemia d/c LR mivf. 10/05 Interrogation completed, [employer] DDDR off vasopressors this AM. Trend CVP- 5 this AM. Renal: Acute kidney injury BPH Metabolic acidosis Creatinine slowly downtrending today. Every hour urine outputs, [place] -d/c bicarb infusion. -Monitor BMP -Hold home meds Finasteride,and Tamulosin -- Strict I/Os FEN/GI: Acute protein calorie malnutritionsevere Chronic dysphagia GERD Barrios's esophagus Vitamin C, D patient's Hypernatremia Free water flushes increase to 300mL per tube q4h. --d/c mivf. --replace K. - G-tube feeds at goal -daily vitamins Fluids as above Heme/ID: Possible aspiration pneumonia MRSA Pneumonia Septic shock Vancomycin with pharmacy dosing, plan for 7 day course. (anticipated stop date 10/11) will d/c cefepime and flagyl today as cultures have been negative. -will d/c Hydrocortisone as blood glucose has been difficult to control and we are out of shock now. will restart and wean if he has rebound hypotension. sputum culture 10/05: MRSA --urine, blood cultures NGTD. Endocrine: Hyperglycemia of critical illness DM -Hold home meds glipizide, will consider Levemir when patient becomes stable -- increase SSI to high dose, q4h. MSK: Gout -Begin allopurinol Prophylaxis: GI Prophylaxis Protonix 40 mg IV every 12 hours DVT Prophylaxis -- SCDs SQ heparin Lines: 10/05 right IJ triple lumen catheter 10/05, [place] Dispo: Discussed with WORKSHOP MANAGER at bedside. This patient remains critically ill with one or more organ systems which are or may become a threat to life. I have spent in excess of 34 minutes discontinuously in the care and management of this patient. This time is exclusive of procedures, and includes, but is not limited to, evaluation of the patient, review of the medical record, discussions with family, consultants, nursing staff, or respiratory therapy, and documentation in the medical record. Palliative care consulted, the patient has Alternate code status. Ulises Serra MD Oct 10, 2016 07:28
[2016-10-10] MEDS: CHLORHEXIDINE 0.12% (ORAL KIT) 15 ML CUP MT SCH (08:00)
[2016-10-10] MEDS ORDERED: FREE WATER G-TUBE SCH (10:00)
[2016-10-10] MEDS ORDERED: INSULIN NovoLIN REGULAR SUPPLEMENTAL SCALE SQ SCH (10:00)
[2016-10-10] MEDS ORDERED: LORazepam 2 MG/ML VIAL IV PUSH SCH (11:00)
[2016-10-10] MEDS: POLYETHYLENE GLYCOL 17 GM PKG PO SCH (12:35)
[2016-10-10] MEDS: PANTOPRAZOLE SODIUM 40 MG VIAL IV SCH (12:35)
[2016-10-10] MEDS: ZIPRASIDONE HCL 80 MG CAP GT SCH (12:36)
[2016-10-10] MEDS: SODIUM CHLORIDE 0.9% FLUSH 5 ML FLUSH IV FLUSH SCH (12:36)
[2016-10-10] MEDS: ALLOPURINOL 100 MG TAB G-TUBE SCH (12:37)
[2016-10-10] MEDS ORDERED: LORazepam 2 MG/ML VIAL IV ONE ×2 (13:30→13:45)
[2016-10-10] MEDS ORDERED: fentaNYL DRIP 250 ML IV SCH (13:30)
[2016-10-10] MEDS ORDERED: HYOSCYAMINE 0.5 MG/ML AMP IV ONE (13:30)
[2016-10-10] MEDS ORDERED: HALOPERIDOL LACTATE 5 MG/ML AMP IV PUSH PRN (13:30)
[2016-10-10] MEDS ORDERED: HYOSCYAMINE 0.5 MG/ML AMP IV PRN (14:00)
[2016-10-10] MEDS ORDERED: FUROSEMIDE 20 MG/2 ML VIAL IV PRN (14:00)
[2016-10-10] MEDS ORDERED: ACETAMINOPHEN 650 MG SUPP PR PRN (14:00)
[2016-10-10] MEDS ORDERED: LORazepam 2 MG/ML VIAL IV PRN ×2 (14:00)
[2016-10-10] MEDS ORDERED: BISACODYL 10 MG SUPP PR PRN (14:00)
[2016-10-10] MEDS ORDERED: LORazepam 2 MG/ML VIAL IVS PRN (14:00)
--- NOTE | 2016-10-10 14:48 | HHI.HCPN ---
Reason for visit a. To assist with evaluation and management of symptoms including: b. To assist medical decision maker(s) with: better understanding of current medical conditions; weighing benefits/burdens of medical treatment options; making medical treatment decisions. Subjective/Interval History INTERVAL NOTE: The patient is seen in the [facility] bed, he remains mechanically ventilated. Eyes opening, does not track or follow commands. He remains off of pressors now, remains on fentanyl. He continues to have episodes of agitation when he is stimulated. His sodium is now 164. Stepdaughter/HCS Gregoria has arrived, see below . Family/friend interactions I reviewed with Gregoria again the patient's decline over the past few months, the severe illness that he has experienced now, and the high likelihood that his current issues are not survivable. She says [facility] the [facility] in recent months and weeks, and that he had told staff that he did not want to go on this way. She is certain that he would not want to be kept alive artificially, and she is requesting withdrawal of life support today. . Advance Directives Living Will: Never completed Health Care Surrogate: Copy in medical record Durable Power of Leather Worker: Copy in medical record Advance Directive Specifics Health Care Surrogate(s): Stepdaughter Gregoria Munguia . Objective Vital Signs Date Time Temp Pulse Resp B/P Pulse Ox O2 Delivery O2 Flow Rate FiO2 10/10/16 11:53 97 40 10/10/16 10:49 97 40 10/10/16 08:00 98.4 60 17 156/85 96 10/10/16 08:00 40 10/10/16 08:00 60 10/10/16 07:44 40 10/10/16 07:44 93 40 10/10/16 06:00 60 10/10/16 04:03 97 40 10/10/16 04:00 98.5 95 30 143/69 92 10/10/16 04:00 95 10/10/16 04:00 40 10/10/16 04:00 10/10/16 02:00 59 10/10/16 00:20 95 40 10/10/16 00:00 59 10/10/16 00:00 10/10/16 00:00 40 10/10/16 00:00 98.4 59 15 107/55 96 10/09/16 22:00 59 10/09/16 20:16 98 40 10/09/16 20:00 99.5 112 15 137/65 97 10/09/16 20:00 40 10/09/16 20:00 112 10/09/16 20:00 10/09/16 18:00 78 10/09/16 16:00 98.1 60 16 120/68 95 10/09/16 16:00 60 10/09/16 16:00 40 10/09/16 16:00 60 10/09/16 15:36 99 40 Intake & Output 10/10/16 10/10/16 07:00 19:00 Intake Total 3245 ml Output Total 3500 ml Balance -255 ml IV Total 2145 ml Tube Feeding 560 ml Tube Irrigant 540 ml Output Urine Total 3500 ml Stool Total 0 ml Physical Exam CONSTITUTIONAL/GENERAL: This is an elderly, frail-appearing patient, who still appears distressed/agitated when stimulated. TUBES/LINES/DRAINS: Endotracheal tube, Urbina catheter, SCDs NECK: Trachea midline. Supple, nontender. No palpable thyroid enlargement or nodularity. CARDIOVASCULAR: Regular rate and rhythm without murmurs, gallops, or rubs. No JVD. Peripheral pulses symmetric. RESPIRATORY/CHEST: Symmetric, unlabored respirations. Diminished breath sounds , scattered rhonchi. GASTROINTESTINAL: Abdomen soft, non-tender, nondistended. No hepato-splenomegaly , or palpable masses. No guarding. Bowel sounds present. GENITOURINARY: Without palpable bladder distension. Urbina catheter in place. MUSCULOSKELETAL: Extremities without clubbing, cyanosis, or edema. No joint tenderness or effusion noted. No calf tenderness. No mottling or clubbing. NEUROLOGICAL: The patient appears awake. He raises his arms and shakes his arms and legs when he is stimulated. Does not follow commands, does not answer questions, does not track.. PSYCHIATRIC: Agitation and restlessness when stimulated .. Diagnostic Tests Laboratory Laboratory Tests Test 10/08/16 10/08/16 10/08/16 10/08/16 03:47 05:39 08:25 17:50 White Blood Count 12.6 TH/MM3 (4.0-11.0) Red Blood Count 2.58 MIL/MM3 (4.50-5.90) Hemoglobin 8.0 GM/DL (13.0-17.0) Hematocrit 25.4 % (39.0-51.0) Mean Corpuscular Volume 98.4 FL (80.0-100.0) Mean Corpuscular Hemoglobin 30.9 PG (27.0-34.0) Mean Corpuscular Hemoglobin 31.4 % Concent (32.0-36.0) Red Cell Distribution Width 16.3 % (11.6-17.2) Platelet Count 273 TH/MM3 (150-450) Mean Platelet Volume 8.2 FL (7.0-11.0) Sodium Level 156 MEQ/L (136-145) Potassium Level 3.9 MEQ/L (3.5-5.1) Chloride Level 123 MEQ/L (98-107) Carbon Dioxide Level 26.5 MEQ/L (21.0-32.0) Anion Gap 7 MEQ/L (5-15) Blood Urea Nitrogen 45 MG/DL (7-18) Creatinine 1.98 MG/DL (0.60-1.30) Estimat Glomerular Filtration 33 ML/MIN (>89) Rate Random Glucose 193 MG/DL (74-106) Calcium Level 9.2 MG/DL (8.5-10.1) Phosphorus Level 3.0 MG/DL (2.5-4.9) Magnesium Level 2.1 MG/DL (1.5-2.5) Blood Gas Puncture Site LT RADIAL RT RADIAL Blood Gas Patient Temperature 98.6 98.6 Blood Gas HCO3 23 mmol/L 24 mmol/L (22-26) (22-26) Blood Gas Base Excess -2.2 mmol/L -1.5 mmol/L (-2-2) (-2-2) Blood Gas Oxygen Saturation 89 % (90-100) 92 % (90-100) Arterial Blood pH 7.30 7.31 (7.380-7.420) (7.380-7.420) Arterial Blood Partial 49 mmHg (38-42) 49 mmHg (38-42) Pressure CO2 Arterial Blood Partial 63 mmHg 73 mmHg Pressure O2 (61-120) (61-120) Arterial Blood Oxygen Content 11.4 Vol % 10.5 Vol % (12.0-20.0) (12.0-20.0) Arterial Blood 1.4 % (0-4) 1.4 % (0-4) Carboxyhemoglobin Arterial Blood Methemoglobin 0.9 % (0-2) 1.3 % (0-2) Blood Gas Hemoglobin 9.0 G/DL 8.1 G/DL (12.0-16.0) (12.0-16.0) Oxygen Delivery Device VENTILATOR VENTILATOR Blood Gas Ventilator Setting A/C15/500/PEEP5 VT500/AC15/5PEEP Blood Gas Inspired Oxygen 40 % 40 % Lactic Acid Level 1.4 mmol/L (0.4-2.0) Ammonia 14 MCMOL/L (11-32) Test 10/08/16 10/09/16 10/09/16 10/10/16 21:00 03:00 05:54 03:30 Lactic Acid Level 1.0 mmol/L (0.4-2.0) Ammonia 11 MCMOL/L (11-32) White Blood Count 11.2 TH/MM3 11.8 TH/MM3 (4.0-11.0) (4.0-11.0) Red Blood Count 2.61 MIL/MM3 2.88 MIL/MM3 (4.50-5.90) (4.50-5.90) Hemoglobin 7.7 GM/DL 8.6 GM/DL (13.0-17.0) (13.0-17.0) Hematocrit 25.3 % 27.9 % (39.0-51.0) (39.0-51.0) Mean Corpuscular Volume 97.0 FL 96.9 FL (80.0-100.0) (80.0-100.0) Mean Corpuscular Hemoglobin 29.6 PG 29.8 PG (27.0-34.0) (27.0-34.0) Mean Corpuscular Hemoglobin 30.6 % 30.8 % Concent (32.0-36.0) (32.0-36.0) Red Cell Distribution Width 15.5 % 15.8 % (11.6-17.2) (11.6-17.2) Platelet Count 254 TH/MM3 269 TH/MM3 (150-450) (150-450) Mean Platelet Volume 7.7 FL 8.3 FL (7.0-11.0) (7.0-11.0) Sodium Level 159 MEQ/L 164 MEQ/L (136-145) (136-145) Potassium Level 3.9 MEQ/L 3.2 MEQ/L (3.5-5.1) (3.5-5.1) Chloride Level 124 MEQ/L 125 MEQ/L (98-107) (98-107) Carbon Dioxide Level 31.0 MEQ/L 32.2 MEQ/L (21.0-32.0) (21.0-32.0) Anion Gap 4 MEQ/L (5-15) 7 MEQ/L (5-15) Blood Urea Nitrogen 43 MG/DL (7-18) 38 MG/DL (7-18) Creatinine 2.02 MG/DL 1.91 MG/DL (0.60-1.30) (0.60-1.30) Estimat Glomerular Filtration 32 ML/MIN (>89) 35 ML/MIN (>89) Rate Random Glucose 203 MG/DL 310 MG/DL (74-106) (74-106) Calcium Level 9.4 MG/DL 9.0 MG/DL (8.5-10.1) (8.5-10.1) Phosphorus Level 2.1 MG/DL (2.5-4.9) Magnesium Level 2.1 MG/DL (1.5-2.5) Vancomycin Level Trough 23.5 MCG/ML (5.0-10.0) Blood Gas Puncture Site LT BRACHIAL Blood Gas Patient Temperature 98.6 Blood Gas HCO3 23 mmol/L (22-26) Blood Gas Base Excess -1.7 mmol/L (-2-2) Blood Gas Oxygen Saturation 89 % (90-100) Arterial Blood pH 7.34 (7.380-7.420) Arterial Blood Partial 44 mmHg (38-42) Pressure CO2 Arterial Blood Partial 63 mmHg Pressure O2 (61-120) Arterial Blood Oxygen Content 11.0 Vol % (12.0-20.0) Arterial Blood 1.4 % (0-4) Carboxyhemoglobin Arterial Blood Methemoglobin 1.0 % (0-2) Blood Gas Hemoglobin 8.8 G/DL (12.0-16.0) Oxygen Delivery Device VENTILATOR Blood Gas Ventilator Setting A/C 15/500/PEEP5 Blood Gas Inspired Oxygen 40 % Random Vancomycin Level 25.3 COMMENT Result Diagram: 10/10/16 0330 10/10/16 0330 Procedures INTUBATION 10/05/16 . Assessment and Plan Disease Oriented Problem List: (1) sepsis, septic shock (2) pneumonia, probable aspiration (3) respiratory failure (4) metabolic encephalopathy (5) BPH (6) diabetes (7) anemia (8) hyperlipidemia (9) anxiety (10) Charcot joint/neuropathic osteoarthropathy (11) long history of psychiatric illness, schizophrenia, bipolar disorder (12) chronic kidney disease (13) recent admission for UTI (14) recent dysphagia, PEG tube placed to weeks prior to admission (15) depression (16) COPD Symptom Scale: (1) agitation 0-10 Scale: 5 (with any stimulation) (2) dyspnea 0-10 Scale: Unable to quantify (mechanical ventilation) Pertinent Non-Medical Issues Psychosocial: , no biologic family, close to his stepdaughter Gregoria. 100% disabled vet with significant long-term psychiatric illness. Spiritual: Stepdaughter/HCP Gregoria reports that the patient is a Scientologist Catholic, unaffiliated with any particular worship or denomination, and that spirituality has been very important for the patient. She specifically requests that one of our chaplains see the patient each day. Legal: The patient lacks capacity for decision-making, and he will not regain that capacity. His stepdaughter Gregoria is healthcare proxy. Ethical issues impacting care: None. . Important Contacts Stepdaughter/HCP Gregroia Munguia [phone] . Prognosis The patient's prognosis is poor. He has been declining for several months, with worsening weakness and recurrent episodes of infection/sepsis. He had a PEG tube placed last month because of dysphagia, and now appears to have aspirated and has bilateral pneumonia with respiratory failure. Certainly he is a candidate and is appropriate for hospice services if the goals evolved to become comfort oriented. . Code Status: No Code Plan * DO NOT RESUSCITATE, for withdrawal of life support today * GOALS: The patient's stepdaughter/HCP Gregoria has a good understanding of the patient's condition, acknowledges and recognizes his steady decline over the past few months, and understands his poor prognosis. She is certain he would not want to be kept alive artificially now, particularly since he was so debilitated before this episode. She is requesting withdrawal of life support today. Anticipatory guidance provided. * DECISION-MAKING: The patient lacks capacity for decision-making, and he will not regain that capacity. His stepdaughter Gregoria is the durable POA and healthcare proxy. * SYMPTOMS: Pain and dyspnea and anxiety will be managed with his fentanyl, anxiety, and PRN Haldol, with withdrawal of life support today. * Palliative Care will continue to follow the patient during this hospitalization. . Time Spent Total Floor Time (mins): 46 Face to Face Time (mins): 30 >50% Counseling/Coord of Care: Yes (d/w Dr. Serra and with RN) Attestation To help prompt me to consider important information that might be impacting today's encounter and assessment, information from prior notes written by myself or my colleagues may have been "brought forward" into today's note. My signature on this note, however, is an attestation that I personally performed the exam, history, and/or decision-making noted today, and, unless otherwise indicated, the interactions with patient, family, and staff as well as the review of records all occurred today. I also attest that the listed assessment and stated plan reflect my best clinical judgment today based on the combination of historical information, prior notes, and today's exam/ interactions. When time spent is documented, it refers only to time spent today by the signer, or if indicated, combined time spent today by collaborating physician/nurse practitioner. Crystal Velarde MD Oct 10, 2016 14:48
[2016-10-10] MEDS ORDERED: LORazepam 2 MG/ML VIAL IV SCH (16:00)
[2016-10-12] MEDS ORDERED: PHARMACY ORDERED LAB XX ONE (06:00)
--- NOTE | 2016-10-13 18:05 | HHI.DS ---
Summary Note Date of : Oct 10, 2016 Time Of : 1637 Admission Date Oct 05, 2016 at 09:43 Admitting Diagnosis septic shock Diagnosis at Time of : Brief History This is a 76-year-old male who presented the emergency room from a senior care facility after he had an acute mental status change and was noticed to have vomited around his tracheostomy site and hypoxia. Per report, he was seen normal earlier in the morning. He is apparently somewhat confused at baseline. He has a long psychiatric history. For EMS, the patient had a GCS of 3. He was intubated in the field. In the emergency room he was hypotensive with systolics in the 60s. He was given IV fluid boluses. He was febrile to 101. He was started on empiric antibiotics. Central line was placed. He was started on norepinephrine. Critical care medicine is consult to evaluate and manage septic shock. CBC/BMP: 10/10/16 0330 10/10/16 0330 Imaging Last Impressions Chest X-Ray 10/06/16 0600 Signed Impressions: Service Date/Time: Thursday, October 06, 2016 03:08 - CONCLUSION: Diffuse bilateral airspace disease. Ananth Dozier MD Head CT 10/05/16 0000 Signed Impressions: Service Date/Time: Wednesday, October 05, 2016 09:24 - CONCLUSION: Negative for an acute process.. Eric Mcclellan MD [facility] Course 10/06: The patient remains at baseline, neurological status unchanged. Not following any commands, spontaneous eye opening. The patient continues on norepinephrine, MAP low 60's. Vasopressin added this a.m.. Patient continues on empiric antibiotics. Palliative medicine has been consulted, or discussion regarding goals of care. 10/07: Tmax 98.7. No change in neurological status on sedation holiday yesterday. The patient continues on norepinephrine and vasopressin for to maintain a MAP greater than 65. Pacemaker was interrogated, functioning properly. Sedation includes propofol and fentanyl for ventilator synchrony. 10/08: Propofol discontinued. The patient continues on fentanyl infusion for ventilator synchrony. Norepinephrine infusion was discontinued last night. Patient continues on vasopressin for vasopressor support. The patient was placed on a sodium bicarbonate infusion secondary to metabolic acidosis. 10/09: No acute issues overnight. Patient continues on a sodium bicarbonate infusion, ABGs improved. 10/10: off vasopressors. serum bicarb rise to 32 this AM. significantly hypernatremic and hypokalemic. appears awake this morning, but not following commands. eyes open. uop improving. Despite mild improvements, his overall functioning pre-hospital was poor, and his family elected to transition to palliation. He underwent palliative extubation and withdraw of care and comfortably at 16:37. Ulises Serra MD Oct 13, 2016 18:05
== END 2016-10-10 16:37 | disposition expired | DRG 870 ==
LOC: NEPE 07:45 → NEDA 09:43 → HIME 12:40
PROVIDERS: ADMIT Internal Medicine Critical Care Medicine; ATTEND Internal Medicine Critical Care Medicine
PROC: 0BH17EZ Insertion of Endotracheal Airway into Trachea, Via Natural or Artificial Opening (ICD-10-PCS; principal; 2016-10-05)
PROC: 5A1955Z Respiratory Ventilation, Greater than 96 Consecutive Hours (ICD-10-PCS; 2016-10-05)
DX: A41.9 Sepsis, unspecified organism (principal); J69.0 Pneumonitis due to inhalation of food and vomit; J96.01 Acute respiratory failure with hypoxia; R65.21 Severe sepsis with septic shock; E43 Unspecified severe protein-calorie malnutrition; G93.41 Metabolic encephalopathy; J15.212 Pneumonia due to Methicillin resistant Staphylococcus aureus; N17.9 Acute kidney failure, unspecified; K22.70 Barrett's esophagus without dysplasia; E87.0 Hyperosmolality and hypernatremia; E87.2 Acidosis; J44.0 Chronic obstructive pulmonary disease with (acute) lower respiratory infection; E11.22 Type 2 diabetes mellitus with diabetic chronic kidney disease; E11.65 Type 2 diabetes mellitus with hyperglycemia; G20 Parkinson's disease; E86.1 Hypovolemia; R40.2430 Glasgow coma scale score 3-8, unspecified time; D64.9 Anemia, unspecified; E87.6 Hypokalemia; N18.9 Chronic kidney disease, unspecified; M14.60 Charcot's joint, unspecified site; E78.5 Hyperlipidemia, unspecified; K21.9 Gastro-esophageal reflux disease without esophagitis; M10.9 Gout, unspecified; M19.90 Unspecified osteoarthritis, unspecified site; N40.0 Benign prostatic hyperplasia without lower urinary tract symptoms; R13.10 Dysphagia, unspecified; Z51.5 Encounter for palliative care; Z66 Do not resuscitate; F25.9 Schizoaffective disorder, unspecified; F31.9 Bipolar disorder, unspecified; F41.9 Anxiety disorder, unspecified; Z87.01 Personal history of pneumonia (recurrent); Z87.891 Personal history of nicotine dependence; Z95.0 Presence of cardiac pacemaker; Z99.3 Dependence on wheelchair
CPT/HCPCS: 36556; 36600; 70450; 71010; 74000; 80048; 80053; 80202; 81001; 82140; 82805; 82948; 83605; 83735; 84100; 84484; 85025; 85027; 85610; 85730; 86403; 87040; 87070; 87086; 87186; 87205; 87641; 93005; 94002; 94003; 94640; 94664; 96365; 96366; 96375; C9113; J0692; J1644; J1720; J1980; J2060; J2250; J3010; J3370; J7030; J7050; J7070; J7120